=== PATIENT | female | born 1940 | race Caucasian/White ===

== ENCOUNTER 2016-10-01 06:12 | Inpatient (IN) | payer OTHER, MEDICARE ==
[~2016-10-01] VITALS: Ht 152.4 cm; Wt 63.7 kg
[2016-10-01] VITALS (7 sets, daily range): BP systolic 108–133; BP diastolic 50–71; PULSE 70–83; RESP 16–20; TEMP 96.4–98.1; O2SAT 94–97
[~2016-10-01 06:12] MED LIST: DILA100C PO; FOSA35TA2 PO; INDO25CA PO; LORT7.5T3 PO; MEDR4TAB PO; SULF1TAB47 PO
[2016-10-01] MEDS ORDERED: PHEN100C PO (06:48)
[2016-10-01] MEDS ORDERED: PHEN200C3 PO (06:48)
--- NOTE | 2016-10-01 07:20 | PD ---
HPI Chief Complaint: Abdominal Pain Time Seen by Provider: 07:11 Travel History International Travel<30 days: No Contact w/Intl Traveler<30days: No Traveled to known affect area: No History of Present Illness HPI This patient complains of abdominal pain. Duration is 13 hours. Severity is moderate. Location is right upper quadrant. She has nausea and vomited yesterday. No diarrhea or fever. No abdominal surgeries PFSH Past Medical History Arthritis: Yes Musculoskeletal: Yes (OSTEOPOROSIS) Seizures: Yes ?: Not : 1 Para: 1 Social History Alcohol Use: No Tobacco Use: No Substance Use: No Allergies-Medications (Allergen,Severity, Reaction): Coded Allergies: No Known Allergies (Verified , 10/01/16) Reported Meds & Prescriptions Reported Meds & Active Scripts Active Reported Phenytoin Extended 100 Mg Cap 100 Mg PO BID Phenytoin Extended 200 Mg Cap 200 Mg PO TID Review of Systems General / Constitutional: No: Fever Eyes: No: Visual changes HENT: No: Headaches Cardiovascular: No: Chest Pain or Discomfort Respiratory: No: Shortness of Breath Gastrointestinal: Positive: Nausea, Vomiting, Abdominal Pain Genitourinary: No: Dysuria Musculoskeletal: No: Pain Skin: No Rash Neurologic: No: Weakness Psychiatric: No: Depression Endocrine: No: Polydipsia Hematologic/Lymphatic: No: Easy Bruising Physical Exam Narrative GENERAL: Well-nourished, well-developed patient with abdominal pain. SKIN: Focused skin assessment reveals no rash and nodules. Skin is Warm and dry. HEAD: Atraumatic. Normocephalic. EYES: Pupils equal and round. No scleral icterus. No injection or drainage. ENT: No nasal bleeding or discharge. Mucous membranes pink and moist. NECK: Trachea midline. No JVD. CARDIOVASCULAR: Regular rate and rhythm. No murmur appreciated. RESPIRATORY: No accessory muscle use. Clear to auscultation. Breath sounds equal bilaterally. GASTROINTESTINAL: Abdomen soft, or upper quadrant is tender without rebound or guarding, nondistended. Hepatic and splenic margins not palpable. MUSCULOSKELETAL: No obvious deformities. No clubbing. No cyanosis. No edema. NEUROLOGICAL: Awake and alert. No obvious cranial nerve deficits. Motor grossly within normal limits. Normal speech. PSYCHIATRIC: Appropriate mood and affect; insight and judgment normal. Data Data Last Documented VS Vital Signs Date Time Temp Pulse Resp B/P Pulse Ox O2 Delivery O2 Flow Rate FiO2 10/01/16 09:05 79 16 124/64 97 Room Air 10/01/16 06:24 98.1 Orders Complete Blood Count With Diff (10/01/16 07:16) Comprehensive Metabolic Panel (10/01/16 07:16) Lipase (10/01/16 07:16) Prothrombin Time / Inr (Pt) (10/01/16 07:16) Act Partial Throm Time (Ptt) (10/01/16 07:16) Ct Abd/Pel W Iv Contrast(Rout) (10/01/16 07:16) Iv Access Insert/Monitor (10/01/16 07:16) Ecg Monitoring (10/01/16 07:16) Oximetry (10/01/16 07:16) Ondansetron Inj (Zofran Inj) (10/01/16 07:30) Sodium Chloride 0.9% Flush (Ns Flush) (10/01/16 07:30) Morphine Inj (Morphine Inj) (10/01/16 07:30) Iohexol 350 Inj (Omnipaque 350 Inj) (10/01/16 08:09) Admit Order (Ed Use Only) (10/01/16 09:07) Ampicillin-Sulbactam Inj (Unasyn Inj) (10/01/16 09:15) Labs Laboratory Tests Test 10/01/16 07:20 White Blood Count 6.3 TH/MM3 Red Blood Count 4.52 MIL/MM3 Hemoglobin 13.9 GM/DL Hematocrit 42.8 % Mean Corpuscular Volume 94.7 FL Mean Corpuscular Hemoglobin 30.7 PG Mean Corpuscular Hemoglobin 32.4 % Concent Red Cell Distribution Width 12.7 % Platelet Count 225 TH/MM3 Mean Platelet Volume 9.1 FL Neutrophils (%) (Auto) 68.7 % Lymphocytes (%) (Auto) 21.4 % Monocytes (%) (Auto) 7.8 % Eosinophils (%) (Auto) 1.6 % Basophils (%) (Auto) 0.5 % Neutrophils # (Auto) 4.3 TH/MM3 Lymphocytes # (Auto) 1.4 TH/MM3 Monocytes # (Auto) 0.5 TH/MM3 Eosinophils # (Auto) 0.1 TH/MM3 Basophils # (Auto) 0.0 TH/MM3 CBC Comment DIFF FINAL Differential Comment Prothrombin Time 11.3 SEC Prothromb Time International 1.0 RATIO Ratio Activated Partial 25.7 SEC Thromboplast Time Sodium Level 142 MEQ/L Potassium Level 4.0 MEQ/L Chloride Level 107 MEQ/L Carbon Dioxide Level 26.2 MEQ/L Anion Gap 9 MEQ/L Blood Urea Nitrogen 21 MG/DL Creatinine 0.87 MG/DL Estimat Glomerular Filtration 63 ML/MIN Rate Random Glucose 111 MG/DL Calcium Level 8.9 MG/DL Total Bilirubin 1.0 MG/DL Aspartate Amino Transf 869 U/L (AST/SGOT) Alanine Aminotransferase 419 U/L (ALT/SGPT) Alkaline Phosphatase 180 U/L Total Protein 7.7 GM/DL Albumin 3.6 GM/DL Lipase 240 U/L [facility] Medical Decision Making Medical Screen Exam Complete: Yes Emergency Medical Condition: Yes Medical Record Reviewed: Yes Differential Diagnosis Biliary colic, cholecystitis, pancreatitis Narrative Course I have reviewed the patient's electronic medical record. Patient was here last in 2008. No abdominal imaging on file IV placed I gave her IV Zofran and IV morphine for symptom relief CBC is normal Metabolic profile is normal LFTs are elevated with AST in the 800 range Lipase is normal Coagulation studies are normal CT of abdomen and pelvis shows a distended gallbladder filled with gallstones and a prominent common bile duct I gave the patient dose of Unasyn I spoke with general surgeon He is planning to operate on her tomorrow morning and recommends transfer the main I spoke with hospitalist will admit for cholecystitis Diagnosis Primary Impression: Cholecystitis, acute with cholelithiasis Qualified Code: K80.62 - Calculus of gallbladder and bile duct with acute cholecystitis without obstruction Admitting Information Admitting Physician Requests: Admit Serg Reyes MD Oct 01, 2016 07:20
[2016-10-01] MEDS ORDERED: MORPHINE SULFATE 4 MG/ML INJ IV PUSH ONE (07:30)
[2016-10-01] MEDS ORDERED: SODIUM CHLORIDE 0.9% FLUSH 10 ML FLUSH IV FLUSH PRN ×2 (07:30→09:15)
[2016-10-01] MEDS ORDERED: ONDANSETRON HCL 4 MG/2 ML VIAL IVP ONE (07:30)
[2016-10-01 07:35] LABS: AUTOMATED NEUTROPHIL # 4.3 TH/MM3 (1.8-7.7); BASOPHIL % 0.5 % (0.0-2.0); EOSINOPHIL # 0.1 TH/MM3 (0-0.4); EOSINOPHIL % 1.6 % (0.0-4.0); HEMATOCRIT 42.8 % (35.0-46.0); HEMO FLAGS DIFF FINAL; LYMPH % 21.4 % (9.0-44.0); LYMPHOCYTE # 1.4 TH/MM3 (1.0-4.8); MEAN CELL VOLUME 94.7 FL (80.0-100.0); MEAN CORPUSCULAR HEMOGLOBIN 30.7 PG (27.0-34.0); MEAN CORPUSCULAR HGB CONC 32.4 % (32.0-36.0); MONO % 7.8 % (0.0-8.0); NEUT % 68.7 % (16.0-70.0); PLATELET COUNT 225 TH/MM3 (150-450); RED BLOOD COUNT 4.52 MIL/MM3 (4.00-5.30); RED CELL DISTRIBUTION WIDTH 12.7 % (11.6-17.2); WHITE BLOOD COUNT 6.3 TH/MM3 (4.0-11.0)
[2016-10-01 07:41] LABS: CHLORIDE 107 MEQ/L (98-107); SODIUM (NA) 142 MEQ/L (136-145)
[2016-10-01 07:45] LABS: ANION GAP 9 MEQ/L (5-15); BICARBONATE 26.2 MEQ/L (21.0-32.0)
[2016-10-01 07:46] LABS: BLOOD UREA NITROGEN 21 MG/DL (7-18)
[2016-10-01 07:48] LABS: ALT (GPT) 419 U/L (10-53); AST (GOT) 869 U/L (15-37); GLOMERULAR FILTRATION RATE 63 ML/MIN (>89)
[2016-10-01 07:51] LABS: ALKALINE PHOSPHATASE 180 U/L (45-117)
[2016-10-01 07:54] LABS: APTT (PATIENT) 25.7 SEC (24.3-30.1); PROTHROMBIN TIME - PATIENT 11.3 SEC (9.8-11.6)
[2016-10-01] MEDS ORDERED: IOHEXOL 350 MG/ML 10 ML VIAL (for RAD DIAG) IV ONE (08:09)
--- NOTE | 2016-10-01 08:30 | RADHPO ---
EXAM DATE/TIME: 10/01/2016 07:54 [facility] COMPARISON: No previous studies available for comparison. INDICATIONS : Right upper quadrant pain. Nausea and vomiting. IV CONTRAST: 80 cc Omnipaque 350 (iohexol) IV ORAL CONTRAST: No oral contrast ingested. RADIATION DOSE: 9.02 CTDIvol (mGy) MEDICAL HISTORY : Seizures. SURGICAL HISTORY : None. ENCOUNTER: Initial ACUITY: 1 day PAIN SCALE: 10/10 LOCATION: Right upper quadrant TECHNIQUE: Volumetric scanning of the abdomen and pelvis was performed. Using automated exposure control and ad justment of the mA and/or kV according to patient size, radiation dose was kept as low as reasonably achievable to obtain optimal diagnostic quality images. FINDINGS: LOWER LUNGS: The visualized lower lungs are clear. GE junctional is unremarkable LIVER: Homogeneous density without lesion. There is mild intrahepatic delayed ductal dilatation with promin ent common duct and multiple gallstones.. Gallbladder is distended. Minimal inflammatory changes ar e noted.. Prominent hiatal hernia is noted. SPLEEN: Normal size without lesion. PANCREAS: Common duct is dilated into the head of the pancreas. ADRENAL GLANDS: Within normal limits. KIDNEYS: Normal in size and shape. There is no mass, stone, or hydronephrosis. CECUM : The region of the cecum and terminal ileum appear normal. RETROPERITONEAL: There is no adenopathy PELVIS: Pelvic contents are unremarkable. ABDOMINAL WALL: Intact without hernia BONE WINDOWS: Mild degenerative changes are seen in the lumbar spine. CONCLUSION: Abnormal gallbladder, distended with multiple stones and prominent common duct. Mild intrahepatic bi liary duct dilatation is present. Cholecystitis would be consideration. Common duct stones may be p resent given the size of the common duct. Prominent hiatal hernia. Sanya Vela MD FACR on October 01, 2016 at 8:24 Board Certified Radiologist. This report was verified electronically.
[2016-10-01] MEDS ORDERED: SODIUM CHLOR 0.45% 1000 ML INJ 1,000 ML IV SCH (09:13)
[2016-10-01] MEDS ORDERED: NALOXONE HCL 0.4 MG/ML AMP IV PRN (09:15)
[2016-10-01] MEDS ORDERED: ACETAMINOPHEN 325 MG TAB PO PRN ×2 (09:15)
[2016-10-01] MEDS ORDERED: AMPICILLIN-SULBACTAM INJ 3 GM in SODIUM CHLORIDE 0.9% INJ 100 ML IV ONE (09:15)
[2016-10-01] MEDS ORDERED: SENNOSIDES 8.6 MG TAB PO PRN (09:15)
[2016-10-01] MEDS ORDERED: MORPHINE SULFATE 4 MG/ML INJ IV PRN (09:15)
--- NOTE | 2016-10-01 09:45 | HHI.HP ---
HPI Service [facility] Primary Care Physician Non-Staff Admission Diagnosis acute cholecystitis Diagnoses: Chief Complaint: Abdominal pain, nausea Travel History International Travel<30 Days: No Contact w/Intl Traveler <30 Da: No Traveled to Known Affected Are: No History of Present Illness The patient is a 75-year-old female with a past medical history of seizure disorder who is presenting to the hospital with severe abdominal pain and nausea and vomiting. The patient says that yesterday she received a cortisone injection in her left foot for plantar fasciitis. After that she went to the [facility] and had a [place] salad. Once she got home she started developing severe abdominal pain. She said the pain was located all over the front of her stomach and it seemed to start spreading upwards. She said the pain was 10 out of 10 in severity. She tried self inducing vomiting several times to try to alleviate the symptoms. She said that did not help. She also tried taking Alpa -[place] and Pepto-Bismol and those also did not help. She was unable to go to sleep and decided to come to the hospital for further evaluation. Currently she says all her symptoms have resolved. She does not have much of an appetite at this time. Review of Systems Except as stated in HPI: all other systems reviewed are Neg Past Family Social History Past Medical History Seizure disorder Planta fasciitis Past Surgical History Left breast biopsy Surgery on the little toe of the right foot Allergies: Coded Allergies: No Known Allergies (Verified , 10/01/16) Active Ordered Medications Current Medications Medications (Trade) Dose Ordered Sig/Elen Route Start Time Stop Time Status Last Admin Sodium Chloride 2 ml 2 ml UNSCH PRN IV FLUSH 10/01/16 07:30 10/01/16 07:46 (Unasyn Inj/NS Inj) 100 ml @ 200 mls/hr ONCE ONCE IV 10/01/16 09:15 10/01/16 09:44 (NS Flush) 2 ml UNSCH PRN IV FLUSH 10/01/16 09:15 UNV (NS Flush) 2 ml BID IV FLUSH 10/01/16 21:00 UNV (Tylenol) 650 mg Q4H PRN PO 10/01/16 09:15 UNV (Zofran Inj) 4 mg Q6H PRN IVP 10/01/16 09:15 UNV (Colace) 100 mg Q12H PO 10/01/16 09:15 UNV (Senokot) 17.2 mg Q12H PRN PO 10/01/16 09:15 UNV (Tylenol) 650 mg Q6H PRN PO 10/01/16 09:15 UNV (Roxicodone) 10 mg Q4H PRN PO 10/01/16 09:15 UNV (Morphine Inj) 4 mg Q4H PRN IV 10/01/16 09:15 UNV (Roxicodone) 5 mg Q4H PRN PO 10/01/16 09:15 UNV Naloxone HCl 0.4 mg 0.4 mg UNSCH PRN IV 10/01/16 09:15 UNV Ampicillin Sodium/ Sulbactam Sodium 3 gm/Sodium Chloride 100 ml @ 200 mls/hr Q6H IV 10/01/16 15:00 UNV (D5W-1/2 NS 1000 ml Inj) 1,000 ml @ 75 mls/hr [id number] IV 10/01/16 09:45 UNV Family History The patient denies pertinent family history. Social History The patient rarely drinks a glass of wine. She does not smoke. Physical Exam Vital Signs Vital Signs Date Time Temp Pulse Resp B/P Pulse Ox O2 Delivery O2 Flow Rate FiO2 10/01/16 09:05 79 16 124/64 97 Room Air 10/01/16 08:25 Room Air 10/01/16 08:15 83 18 133/63 97 Room Air 10/01/16 07:50 16 10/01/16 06:24 98.1 80 20 126/71 96 Physical Exam GENERAL: This is a well-nourished, well-developed patient, in no apparent distress. SKIN: No rashes, ecchymoses or lesions. Cool and dry. HEAD: Atraumatic. Normocephalic. No temporal or scalp tenderness. EYES: Pupils equal round and reactive. Extraocular motions intact. No scleral icterus. No injection or drainage. ENT: Nose without bleeding, purulent drainage or septal hematoma. Throat without erythema, tonsillar hypertrophy or exudate. Uvula midline. Airway patent. NECK: Trachea midline. No JVD or lymphadenopathy. Supple, nontender, no meningeal signs. CARDIOVASCULAR: Regular rate and rhythm without murmurs, gallops, or rubs. RESPIRATORY: Clear to auscultation. Breath sounds equal bilaterally. No wheezes , rales, or rhonchi. GASTROINTESTINAL: Abdomen soft, non-tender, nondistended. No hepato-splenomegaly , or palpable masses. No guarding. MUSCULOSKELETAL: Extremities without clubbing, cyanosis, or edema. No joint tenderness, effusion, or edema noted. NEUROLOGICAL: Awake and alert. Cranial nerves II through XII intact. Motor and sensory grossly within normal limits. Five out of 5 muscle strength in all muscle groups. Normal speech. PSYCH: Mood and affect appropriate. Laboratory Laboratory Tests Test 10/01/16 07:20 White Blood Count 6.3 Red Blood Count 4.52 Hemoglobin 13.9 Hematocrit 42.8 Mean Corpuscular Volume 94.7 Mean Corpuscular Hemoglobin 30.7 Mean Corpuscular Hemoglobin 32.4 Concent Red Cell Distribution Width 12.7 Platelet Count 225 Mean Platelet Volume 9.1 Neutrophils (%) (Auto) 68.7 Lymphocytes (%) (Auto) 21.4 Monocytes (%) (Auto) 7.8 Eosinophils (%) (Auto) 1.6 Basophils (%) (Auto) 0.5 Neutrophils # (Auto) 4.3 Lymphocytes # (Auto) 1.4 Monocytes # (Auto) 0.5 Eosinophils # (Auto) 0.1 Basophils # (Auto) 0.0 CBC Comment DIFF FINAL Differential Comment Prothrombin Time 11.3 Prothromb Time International 1.0 Ratio Activated Partial 25.7 Thromboplast Time Sodium Level 142 Potassium Level 4.0 Chloride Level 107 Carbon Dioxide Level 26.2 Anion Gap 9 Blood Urea Nitrogen 21 Creatinine 0.87 Estimat Glomerular Filtration 63 Rate Random Glucose 111 Calcium Level 8.9 Total Bilirubin 1.0 Aspartate Amino Transf 869 (AST/SGOT) Alanine Aminotransferase 419 (ALT/SGPT) Alkaline Phosphatase 180 Total Protein 7.7 Albumin 3.6 Lipase 240 Result Diagram: 10/01/1671910/01/1620 Imaging Last Impressions Abdomen/Pelvis CT 10/01/16 0716 Signed Impressions: Service Date/Time: Saturday, October 01, 2016 07:54 - CONCLUSION: Abnormal gallbladder, distended with multiple stones and prominent common duct. Mild intrahepatic biliary duct dilatation is present. Cholecystitis would be consideration. Common duct stones may be present given the size of the common duct. Prominent hiatal hernia. Sanya Vela MD FACR Assessment and Plan Assessment and Plan Acute cholecystitis The patient developed symptoms of severe pain and nausea and vomiting. LFTs were quite elevated. CT of the abdomen showed: Abnormal gallbladder, distended with multiple stones and prominent common duct; Mild intrahepatic biliary duct dilatation is present. Gen. surgery was contacted by the emergency Department physician. - Keep the patient nothing by mouth with IV fluids. - Pain control with a bowel regimen. - Antiemetics as needed. - Continue IV Unasyn. - Surgery planning on cholecystectomy 10/02/16. Seizure disorder The patient is on phenytoin. She says she has not had a seizure in over 50 years. - Continue home medication regimen. PPx: SCDs. Code Status Full. Discussed Condition With Pt, pt's family, Dr. Reyes. Physician Certification 2 Midnight Certification Type: Admission for Inpatient Services Order for Inpatient Services The services are ordered in accordance with Medicare regulations or non- Medicare payer requirements, as applicable. In the case of services not specified as inpatient-only, they are appropriately provided as inpatient services in accordance with the 2-midnight benchmark. Estimated LOS (days): 2 days is the estimated time the patient will need to remain in the hospital, assuming treatment plan goals are met and no additional complications. Post-Hospital Plan: Home Timmy Stapleton DO Oct 01, 2016 09:45
[2016-10-01] MEDS: DOCUSATE SODIUM 100 MG CAP PO SCH ×2 (10:24→21:00)
[2016-10-01] MEDS: DEXT 5%-NACL 0.45% 1000 ML INJ 1,000 ML IV SCH ×2 (10:27→23:05)
[2016-10-01] MEDS: AMPICILLIN-SULBACTAM INJ 3 GM in SODIUM CHLORIDE 0.9% INJ 100 ML IV SCH ×2 (15:29→21:30)
[2016-10-01] MEDS: ONDANSETRON HCL 4 MG/2 ML VIAL IVP PRN (17:40)
[2016-10-01] MEDS: SODIUM CHLORIDE 0.9% FLUSH 10 ML FLUSH IV FLUSH SCH (21:00)
[2016-10-02] VITALS (7 sets, daily range): BP systolic 97–126; BP diastolic 50–76; PULSE 70–86; RESP 16–20; TEMP 96.1–98; O2SAT 94–98
[2016-10-02] MEDS: AMPICILLIN-SULBACTAM INJ 3 GM in SODIUM CHLORIDE 0.9% INJ 100 ML IV SCH ×4 (02:52→19:45)
[2016-10-02] MEDS ORDERED: SODIUM CHLORID 0.9% 500 ML IV PRN (04:45)
[2016-10-02] MEDS ORDERED: CHLORHEXIDINE GLUCONATE 2 % 1 PACK (2 CLOTHS) TOPICAL PRN (04:45)
[2016-10-02] MEDS ORDERED: LACTATED RINGER'S 1000 ML IV PRN (04:45)
[2016-10-02] MEDS ORDERED: METOPROLOL TARTRATE 25 MG TAB PO PRN (04:45)
[2016-10-02] MEDS ORDERED: INSULIN HUMAN REGULAR 1,000 UNITS/10 ML VIAL SQ PRN (04:45)
[2016-10-02] MEDS ORDERED: POVIDONE IODINE 5% (ANTISEPSIS KIT) 4 APPLICATIONS EACH NARE PRN (04:45)
[2016-10-02 07:30] LABS: AUTOMATED NEUTROPHIL # 2.2 TH/MM3 (1.8-7.7); BASOPHIL % 0.9 % (0.0-2.0); EOSINOPHIL # 0.2 TH/MM3 (0-0.4); EOSINOPHIL % 3.5 % (0.0-4.0); HEMATOCRIT 39.9 % (35.0-46.0); HEMO FLAGS DIFF FINAL; LYMPH % 32.4 % (9.0-44.0); LYMPHOCYTE # 1.4 TH/MM3 (1.0-4.8); MEAN CELL VOLUME 96.2 FL (80.0-100.0); MEAN CORPUSCULAR HEMOGLOBIN 31.6 PG (27.0-34.0); MEAN CORPUSCULAR HGB CONC 32.9 % (32.0-36.0); MONO % 11.4 % (0.0-8.0); NEUT % 51.8 % (16.0-70.0); PLATELET COUNT 180 TH/MM3 (150-450); RED BLOOD COUNT 4.15 MIL/MM3 (4.00-5.30); RED CELL DISTRIBUTION WIDTH 12.6 % (11.6-17.2); WHITE BLOOD COUNT 4.2 TH/MM3 (4.0-11.0)
[2016-10-02 07:50] LABS: ALT (GPT) 429 U/L (10-53); ANION GAP 10 MEQ/L (5-15); AST (GOT) 331 U/L (15-37); BICARBONATE 25.2 MEQ/L (21.0-32.0); BLOOD UREA NITROGEN 13 MG/DL (7-18); CHLORIDE 108 MEQ/L (98-107); GLOMERULAR FILTRATION RATE 69 ML/MIN (>89); POTASSIUM 3.7 MEQ/L (3.5-5.1); SODIUM (NA) 143 MEQ/L (136-145)
[2016-10-02 07:53] LABS: ALKALINE PHOSPHATASE 208 U/L (45-117); TOTAL BILIRUBIN ADULT 0.4 MG/DL (0.2-1.0)
[2016-10-02] MEDS: SODIUM CHLORIDE 0.9% FLUSH 10 ML FLUSH IV FLUSH SCH ×2 (08:24→19:45)
[2016-10-02] MEDS: DOCUSATE SODIUM 100 MG CAP PO SCH ×2 (08:24→19:44)
[2016-10-02] MEDS ORDERED: PHENYTOIN SODIUM 100 MG CAP PO SCH (09:00)
--- NOTE | 2016-10-02 10:56 | HHI.PR ---
Subjective Remarks Follow-up on acute cholecystitis Patient tells me currently her pain is well-controlled. She denies any nausea or vomiting. She feels hungry. She tells me that she has a history of seizure disorder however she has not been getting her medications the way she takes them at home. She tells me that she takes Dilantin 100 mg 2 tablets in the morning and 1 at night. Both and patient are concerned that she is not getting her medications appropriately and she tells me that her seizures have been well controlled for many years. Objective Vitals Vital Signs Date Time Temp Pulse Resp B/P Pulse Ox O2 Delivery O2 Flow Rate FiO2 10/02/16 07:09 96.5 72 16 120/58 95 10/02/16 04:00 98.0 70 20 97/50 97 10/02/16 00:00 97.5 73 20 114/59 94 10/01/16 20:00 97.2 77 18 118/66 94 10/01/16 16:00 97.0 72 18 121/50 94 10/01/16 13:33 96.4 70 18 108/60 96 10/01/16 13:09 79 18 110/59 97 Result Diagram: 10/02/16 0650 10/02/16 0550 Imaging Last Impressions Abdomen/Pelvis CT 10/01/16 0716 Signed Impressions: Service Date/Time: Saturday, October 01, 2016 07:54 - CONCLUSION: Abnormal gallbladder, distended with multiple stones and prominent common duct. Mild intrahepatic biliary duct dilatation is present. Cholecystitis would be consideration. Common duct stones may be present given the size of the common duct. Prominent hiatal hernia. Sanya Vela MD FACR Objective Remarks GENERAL: This is a well-nourished, well-developed patient, in no apparent distress. CARDIOVASCULAR: Regular rate and rhythm without murmurs RESPIRATORY: Clear to auscultation. Breath sounds equal bilaterally. No wheezes GASTROINTESTINAL: Abdomen soft, non-tender, nondistended. No guarding or rebound. MUSCULOSKELETAL: Extremities without edema. No joint tenderness, effusion, or edema noted. NEUROLOGICAL: Awake and alert. Cranial nerves II through XII intact. Motor and sensory grossly within normal limits. Five out of 5 muscle strength in all muscle groups. Normal speech. PSYCH: Mood and affect appropriate. A/P Assessment and Plan Acute cholecystitis The patient developed symptoms of severe pain and nausea and vomiting. LFTs were quite elevated AST/ALT 869/419 now trending down AST/ALT 331/429 today. Continue to monitor closely. CT of the abdomen showed: Abnormal gallbladder, distended with multiple stones and prominent common duct; Mild intrahepatic biliary duct dilatation is present. Gen. surgery was contacted by the emergency Department physician. From the orders I see that Dr. Omalley has also consulted gastroenterology. - For now, will continue to Keep the patient NPO with IV fluids. - Continue Pain control with a bowel regimen. - Continue Antiemetics as needed. - Continue IV Unasyn. - Per ER note, the patient is supposed to undergo surgery today for cholecystectomy. We will await final recommendations from general surgery. Seizure disorder The patient is on phenytoin. She says she has not had a seizure in over 50 years. -I have requested that I and update the med rec and we will resume patient's home med Dilantin at 200 mg in the morning and one here 100 mg in the evening Discharge Planning Awaiting recommendations from general surgery and gastroenterology. Jaqueline Heck MD Oct 02, 2016 10:55
[2016-10-02] MEDS ORDERED: PHEN200C3 PO (11:02)
[2016-10-02] MEDS ORDERED: PHEN100C PO (11:03)
[2016-10-02] MEDS: DEXT 5%-NACL 0.45% 1000 ML INJ 1,000 ML IV SCH (12:33)
--- NOTE | 2016-10-02 13:32 | PD.CONS ---
HPI History of Present Illness This is a 75 year old female who presents to the ER with severe RUQ abdominal pain, with nausea and vomiting. Reports pain started all of a sudden and rated the pain as 10/10. She tried taking [place] and Pepto-Bismol with no relief. Today she states that her symptoms have resolved. Denies abdominal pain. No N/V today. General surgery was consulted by the ER MD. Abdomen/Pelvis CT 10/01/16 with abnormal gallbladder, distended with multiple stones and prominent common duct. Mild intrahepatic biliary duct dilatation is present. Cholecystitis would be consideration. Common duct stones may be present given the size of the common duct. Prominent hiatal hernia. (Lana Campos) PFSH Past Medical History -Seizure disorder -Plantar fasciitis Past Surgical History -Left breast biopsy -Surgery on R foot, 5th digit (Lana Campos) Coded Allergies: No Known Allergies (Verified , 10/01/16) Medications Current Medications Medications (Trade) Dose Ordered Sig/Elen Route PRN Reason Start Time Stop Time Status Last Admin Dose Admin Sodium Chloride (NS Flush) 2 ml UNSCH PRN IV FLUSH FLUSH AFTER USING IV ACCESS 10/01/16 09:15 Sodium Chloride (NS Flush) 2 ml BID IV FLUSH 10/01/16 21:00 10/02/16 08:24 Acetaminophen (Tylenol) 650 mg Q4H PRN PO TEMP > 100.4 10/01/16 09:15 Ondansetron HCl (Zofran Inj) 4 mg Q6H PRN IVP NAUSEA OR VOMITING 10/01/16 09:15 10/01/16 17:40 Docusate Sodium (Colace) 100 mg Q12HR PO 10/01/16 09:15 10/01/16 10:24 Sennosides (Senokot) 17.2 mg Q12H PRN PO CONSTIPATION 10/01/16 09:15 Acetaminophen (Tylenol) 650 mg Q6H PRN PO PAIN SCALE 1 TO 2 10/01/16 09:15 Oxycodone HCl (Roxicodone) 10 mg Q4H PRN PO PAIN SCALE 6 TO 10 10/01/16 09:15 Morphine Sulfate (Morphine Inj) 4 mg Q4H PRN IV BREAKTHROUGH PAIN 10/01/16 09:15 10/01/16 17:08 Oxycodone HCl (Roxicodone) 5 mg Q4H PRN PO PAIN SCALE 3 TO 5 10/01/16 09:15 Naloxone HCl 0.4 mg 0.4 mg UNSCH PRN IV SEE LABEL COMMENTS 10/01/16 09:15 Ampicillin Sodium/ Sulbactam Sodium 3 gm/Sodium Chloride 100 ml @ 200 mls/hr Q6H IV 10/01/16 15:00 10/02/16 08:23 Dextrose/Sodium Chloride 1,000 ml @ 75 mls/hr [id number] IV 10/01/16 09:45 10/02/16 12:33 Lactated Ringer's 1,000 ml @ 30 mls/hr Q24H PRN IV SEE LABEL COMMENTS 10/02/16 04:45 10/05/16 04:44 Sodium Chloride (NS 500 ml Inj) 500 ml @ 30 mls/hr [id number] PRN IV SEE LABEL COMMENTS 10/02/16 04:45 10/05/16 04:44 Phenytoin (Dilantin) 200 mg DAILY PO 10/03/16 09:00 Phenytoin (Dilantin) 100 mg HS PO 10/02/16 21:00 Family History Denies any pertinent family medical history Social History ETOH: Rare alcohol use Tobacco: Denies Illicit Drugs: Denies (Lana Campos) Review of Systems Constitutional: DENIES: Diaphoretic episodes, Fatigue, Fever, Weight gain, Weight loss, Chills, Dizziness, Change in appetite, Night Sweats Endocrine: DENIES: Polydipsia, Polyuria Eyes: DENIES: Blurred vision, Photosensitivity, Double Vision Ears, nose, mouth, throat: DENIES: Hearing loss, Vertigo, Oral lesions, Throat pain, Hoarseness Respiratory: DENIES: Cough, Wheezing, Hemoptysis, Sputum production, Shortness of breath Cardiovascular: DENIES: Chest pain, Palpitations, Syncope, Lower Extremity Edema, Orthopnea, Claudication Gastrointestinal: DENIES: Abdominal pain, Black stools, Bloody stools, Constipation, Diarrhea, Nausea, Vomiting, Difficulty Swallowing, Anorexia, Odynophagia, Swelling of Abdomen, Heartburn, Hematemesis Genitourinary: DENIES: Urinary frequency, Urinary incontinence, Urgency, Hematuria, Dysuria, Nocturia Musculoskeletal: DENIES: Joint pain, Muscle aches, Stiffness, Joint Swelling, Back pain, Neck pain Integumentary: DENIES: Abnormal pigmentation, Nail changes, Pruritus, Rash, Jaundice Hematologic/lymphatic: DENIES: Bruising, Lymphadenopathy Immunologic/allergic: DENIES: Eczema, Urticaria Neurologic: DENIES: Abnormal gait, Headache, Localized weakness, Paresthesias Psychiatric: DENIES: Anxiety, Confusion, Mood changes, Depression, Agitation, Suicidal Ideation (Lana Campos) GI Exam Vitals I&O Vital Signs Date Time Temp Pulse Resp B/P Pulse Ox O2 Delivery O2 Flow Rate FiO2 10/02/16 11:21 97.0 77 16 110/62 95 10/02/16 07:09 96.5 72 16 120/58 95 10/02/16 04:00 98.0 70 20 97/50 97 10/02/16 00:00 97.5 73 20 114/59 94 10/01/16 20:00 97.2 77 18 118/66 94 10/01/16 16:00 97.0 72 18 121/50 94 10/01/16 13:33 96.4 70 18 108/60 96 10/01/16 13:09 79 18 110/59 97 Imaging Last Impressions Abdomen/Pelvis CT 10/01/16 0716 Signed Impressions: Service Date/Time: Saturday, October 01, 2016 07:54 - CONCLUSION: Abnormal gallbladder, distended with multiple stones and prominent common duct. Mild intrahepatic biliary duct dilatation is present. Cholecystitis would be consideration. Common duct stones may be present given the size of the common duct. Prominent hiatal hernia. Sanya Vela MD FACR Laboratory Test 10/02/16 10/02/16 05:50 06:50 Sodium Level 143 MEQ/L Potassium Level 3.7 MEQ/L Chloride Level 108 MEQ/L Carbon Dioxide Level 25.2 MEQ/L Anion Gap 10 MEQ/L Blood Urea Nitrogen 13 MG/DL Creatinine 0.81 MG/DL Estimat Glomerular Filtration 69 ML/MIN Rate Random Glucose 90 MG/DL Calcium Level 8.4 MG/DL Total Bilirubin 0.4 MG/DL Aspartate Amino Transf 331 U/L (AST/SGOT) Alanine Aminotransferase 429 U/L (ALT/SGPT) Alkaline Phosphatase 208 U/L Total Protein 7.1 GM/DL Albumin 3.3 GM/DL White Blood Count 4.2 TH/MM3 Red Blood Count 4.15 MIL/MM3 Hemoglobin 13.1 GM/DL Hematocrit 39.9 % Mean Corpuscular Volume 96.2 FL Mean Corpuscular Hemoglobin 31.6 PG Mean Corpuscular Hemoglobin 32.9 % Concent Red Cell Distribution Width 12.6 % Platelet Count 180 TH/MM3 Mean Platelet Volume 9.5 FL Neutrophils (%) (Auto) 51.8 % Lymphocytes (%) (Auto) 32.4 % Monocytes (%) (Auto) 11.4 % Eosinophils (%) (Auto) 3.5 % Basophils (%) (Auto) 0.9 % Neutrophils # (Auto) 2.2 TH/MM3 Lymphocytes # (Auto) 1.4 TH/MM3 Monocytes # (Auto) 0.5 TH/MM3 Eosinophils # (Auto) 0.2 TH/MM3 Basophils # (Auto) 0.0 TH/MM3 CBC Comment DIFF FINAL Differential Comment Physical Examination HEENT: PERRLA NECK: Neck is supple, no JVD, no lymphadenopathy. CHEST: CTA CARDIAC: RRR. ABDOMEN: Soft, nondistended, nontender; no hepatosplenomegaly; bowel sounds are present in x 4 quadrants EXTREMITIES: No clubbing, cyanosis, or edema. SKIN: Normal; no rash; no jaundice. MANAGER STRATEGIC PARTNERSHIPS: No focal deficits; A & O x3. (Lana Campos) Assessment and Plan Plan ASSESSMENT: Acute cholecystitis: Patient went to ER for severe abdominal pain, with N/V. Symptoms have resolved. Patient denies any abdominal pain today. No N/V. Abdomen/Pelvis CT 10/01/16--Abnormal gallbladder, distended with multiple stones and prominent common duct. Mild intrahepatic biliary duct dilatation is present. Cholecystitis would be consideration. Common duct stones may be present given the size of the common duct. Prominent hiatal hernia. General surgery was consulted with cholecystectomy scheduled for today. I spoke to Dr. Omalley today and he states that he would like GI recommendation prior to having patient doing cholecystectomy, as the patient is no longer having symptoms. Patient may have passed stones? LFTs are elevated, but have improved today. Initially, AST 869, ALT 419 Today, AST 331, ALT 429. Seizure disorder: Per primary. Stable. Patient is on Phenytoin. PLAN: -Will order ERCP -NPO -IV Fluids -General surgery following with possible cholecystectomy in the future if needed -Further recommendations to follow based on results of above Patient seen and examined by Dr. Herrera and myself and this note is written on his behalf. (Lana Campos) Physician Comments Seen and examined Patient presenting with abdominal pain and was noted to have dilated bile duct and cholelithiasis distended gallbladder and elevated liver function tests We will need to rule out choledocholithiasis An MRCP will be ordered if positive for stones then we will pursue an ERCP Further recommendations shall depend on the above and her hospital course ( Brandon Herrera MD) Lana Campos Oct 02, 2016 13:32 Brandon Herrera MD Oct 02, 2016 14:25
--- NOTE | 2016-10-02 18:08 | RADRPT ---
EXAM DATE/TIME: 10/02/2016 17:32 [facility] COMPARISON: CT ABDOMEN & PELVIS W CONTRAST, October 01, 2016, 7:54. INDICATIONS : Choledocholithiasis. MEDICAL HISTORY : Seizures. Osteoporosis. SURGICAL HISTORY : None. ENCOUNTER: Initial ACUITY: 1 day PAIN SCORE: 5/10 LOCATION: Abdomen TECHNIQUE: Multiplanar, multisequence magnetic resonance imaging of the abdomen was performed. High-resolution 3D dataset was utilized to reconstruct maximum-intensity projection (MIP) images. FINDINGS: The gallbladder demonstrates multiple stones without gallbladder wall thickening, or pericholecy stic fluid. The common bile duct measures 5-6 mm with numerous common bile duct stones. Large hiatal hernia is seen. CONCLUSION: Cholelithiasis and choledocholithiasis. Kyle Wheeler MD on October 02, 2016 at 18:03 Board Certified Radiologist. This report was verified electronically.
--- NOTE | 2016-10-02 19:04 | EKG ---
Date Performed: 10/02/2016 Time Performed: 04:50:32 PTAGE: 75 years EKG: Sinus rhythm Anterior T wave changes are nonspecific Borderline ECG PREVIOUS TRACING : 08/14/1999 11.45 Compared to prior tracing no significant change DOCTOR: Walter Santos Interpretating Date/Time 10/02/2016 19:03:20
[2016-10-02] MEDS: PHENYTOIN SODIUM 100 MG CAP PO SCH (19:44)
--- NOTE | 2016-10-02 22:41 | MB ---
cc: COLIN DHALIWAL MD DATE OF CONSULTATION 10/02/[address] Reyes REASON FOR CONSULTATION Cholecystitis HISTORY OF PRESENT ILLNESS The patient is a 75-year-old female who has presented to [facility] with right upper quadrant pain. The patient was under went evaluation in the emergency department and was found to have multiple gallstones as well as a dilated common bile duct with elevated transaminases, alkaline phosphatase. The patient had resolution of her pain currently. However, the patient describes the pain was in the right upper quadrant without radiation and a constant type pressure related to food intake. She had a several episodes, however, this was the worst episode. The patient denies any jaundice, fever, nausea, diarrhea or constipation or any other symptoms. General surgery was asked to evaluate the patient for possible cholecystitis. REVIEW OF SYSTEMS 12-point review of symptoms conducted with the patient, is negative except for the pertinent positives mentioned above in history of present illness. PAST MEDICAL HISTORY 1. Arthritis 2. Osteoporosis 3. Seizure disorder. PAST SURGICAL HISTORY None ALLERGIES NO KNOWN DRUG ALLERGIES. MEDICATIONS Phenytoin SOCIAL HISTORY The patient denies alcohol, tobacco or drug use. FAMILY HISTORY Noncontributory. PHYSICAL EXAMINATION VITAL SIGNS: Temperature 98.1 degrees, pulse rate 79, blood pressure 124/64, GENERAL: The patient is a thin female in no acute distress. HEENT: Head normocephalic atraumatic. Pupils are round, react and accommodate to light. Sclerae are anicteric. Mucous sounds are moist. NECK: Supple. No JVD. LUNGS: Clear to auscultation bilaterally. Non labored breathing pattern. HEART: Regular rate and rhythm. PMI is nondisplaced. ABDOMEN: Soft, nondistended. No organomegaly. No ascites. No right upper quadrant pain, no surgical scars. Normal bowel sounds. EXTREMITIES: No clubbing, cyanosis or edema. BACK: No CVA tenderness NEUROLOGIC: Patient is awake, alert and oriented x4 moving all extremities. Nonfocal. Cranial nerves II-XII are grossly intact. ASSESSMENT/PLAN The patient is a female with likely mild acute cholecystitis versus biliary colic. Favor biliary colic which is now resolved. The patient unfortunately has had some elevated transaminases and enlarged common bile duct concerning for choledocholithiasis or possibly a passed gallstone and the bile duct stone. I discussed treatment with the patient including inpatient as well as outpatient elective surgery. I would recommend evaluation by gastroenterology for possible choledocholithiasis. If the patient is found to be clear from a GI standpoint with no choledocholithiasis, we will proceed with cholecystectomy either inpatient or outpatient based on the patient's preference. We will follow this patient. Thank you very much for this consultation. MD IVON Bourgeois/ /10:10 PM /10:23 PM
[2016-10-03] MEDS: DEXT 5%-NACL 0.45% 1000 ML INJ 1,000 ML IV SCH ×3 (01:43→15:26)
[2016-10-03] MEDS: AMPICILLIN-SULBACTAM INJ 3 GM in SODIUM CHLORIDE 0.9% INJ 100 ML IV SCH ×4 (02:58→21:05)
[2016-10-03 03:41] VITALS: BP 133/60; PULSE 76; RESP 16; TEMP 97; O2SAT 99
[2016-10-03 05:47] LABS: HEMATOCRIT 38.1 % (35.0-46.0); MEAN CELL VOLUME 95.2 FL (80.0-100.0); MEAN CORPUSCULAR HEMOGLOBIN 31.7 PG (27.0-34.0); MEAN CORPUSCULAR HGB CONC 33.3 % (32.0-36.0); PLATELET COUNT 170 TH/MM3 (150-450); RED CELL DISTRIBUTION WIDTH 12.8 % (11.6-17.2); REVIEW FLAG FINAL; WHITE BLOOD COUNT 4.7 TH/MM3 (4.0-11.0)
[2016-10-03 06:20] LABS: ALKALINE PHOSPHATASE 179 U/L (45-117); ALT (GPT) 265 U/L (10-53); ANION GAP 8 MEQ/L (5-15); AST (GOT) 100 U/L (15-37); BICARBONATE 25.4 MEQ/L (21.0-32.0); BLOOD UREA NITROGEN 9 MG/DL (7-18); CHLORIDE 108 MEQ/L (98-107); GLOMERULAR FILTRATION RATE 71 ML/MIN (>89); POTASSIUM 3.5 MEQ/L (3.5-5.1); SODIUM (NA) 141 MEQ/L (136-145); TOTAL BILIRUBIN ADULT 0.3 MG/DL (0.2-1.0)
[2016-10-03 07:11] VITALS: BP 125/59; PULSE 78; RESP 16; TEMP 96.8; O2SAT 96
[2016-10-03] MEDS: SODIUM CHLORIDE 0.9% FLUSH 10 ML FLUSH IV FLUSH SCH ×2 (08:44→21:05)
[2016-10-03] MEDS: DOCUSATE SODIUM 100 MG CAP PO SCH ×2 (08:44→21:05)
[2016-10-03] MEDS: PHENYTOIN SODIUM 100 MG CAP PO SCH ×2 (08:44→21:05)
--- NOTE | 2016-10-03 11:03 | HHI.PR ---
Subjective Subjective Notes no pain Objective Vitals/I&O Vital Signs Date Time Temp Pulse Resp B/P Pulse Ox O2 Delivery O2 Flow Rate FiO2 10/03/16 07:11 96.8 78 16 125/59 96 10/01/16 09:05 Room Air Labs Laboratory Tests Test 10/03/16 05:13 White Blood Count 4.7 Red Blood Count 4.00 Hemoglobin 12.7 Hematocrit 38.1 Mean Corpuscular Volume 95.2 Mean Corpuscular Hemoglobin 31.7 Mean Corpuscular Hemoglobin 33.3 Concent Red Cell Distribution Width 12.8 Platelet Count 170 Mean Platelet Volume 9.4 Sodium Level 141 Potassium Level 3.5 Chloride Level 108 Carbon Dioxide Level 25.4 Anion Gap 8 Blood Urea Nitrogen 9 Creatinine 0.79 Estimat Glomerular Filtration 71 Rate Random Glucose 110 Calcium Level 8.2 Total Bilirubin 0.3 Aspartate Amino Transf 100 (AST/SGOT) Alanine Aminotransferase 265 (ALT/SGPT) Alkaline Phosphatase 179 Total Protein 6.7 Albumin 3.1 Cardiovascular: Regular Abdomen: Non-distended, Non-tender A/P Assessment and Plan 75yo with CBD stones, increase LFT, stable. will need lap rene MRI with CBD stones, may need ERCP, await GI rec Lj Omalley MD Oct 03, 2016 11:03
[2016-10-03 11:18] VITALS: BP 128/67; PULSE 76; RESP 16; TEMP 96.9; O2SAT 96
--- NOTE | 2016-10-03 13:28 | HHI.PR ---
Subjective Remarks Pt feeling much better. No abdominal pain at this time. Denies any CP/SOB/N/V Tells me that she will be going for a GI procedure tomorrow to remove stone from her ducts and then will f/u as an outpatient w Sx to have her gallbladder removed Objective Vitals Vital Signs Date Time Temp Pulse Resp B/P Pulse Ox O2 Delivery O2 Flow Rate FiO2 10/03/16 11:18 96.9 76 16 128/67 96 10/03/16 07:11 96.8 78 16 125/59 96 10/03/16 03:41 97.0 76 16 133/60 99 10/02/16 23:45 97.2 75 16 105/57 98 10/02/16 19:31 96.6 86 17 126/76 97 10/02/16 15:30 96.1 81 16 123/61 95 I/O 10/02/16 10/02/16 10/02/16 10/03/16 10/03/16 10/03/16 07:00 15:00 23:00 07:00 15:00 23:00 Intake Total 459 ml 600 ml 0 ml Balance 459 ml 600 ml 0 ml Intake Oral 0 ml 600 ml 0 ml IV Total 459 ml # Voids 3 3 2 3 # Bowel Movements 0 3 Result Diagram: 10/03/16 0513 10/03/16 0513 Imaging Last Impressions Cholangiopancreatography MRI 10/02/16 0000 Signed Impressions: Service Date/Time: Sunday, October 02, 2016 17:32 - CONCLUSION: Cholelithiasis and choledocholithiasis. Kyle Wheeler MD Abdomen/Pelvis CT 10/01/16 0716 Signed Impressions: Service Date/Time: Saturday, October 01, 2016 07:54 - CONCLUSION: Abnormal gallbladder, distended with multiple stones and prominent common duct. Mild intrahepatic biliary duct dilatation is present. Cholecystitis would be consideration. Common duct stones may be present given the size of the common duct. Prominent hiatal hernia. Sanya Vela MD FACR Objective Remarks GENERAL: This is a well-nourished, well-developed patient, in no apparent distress. CARDIOVASCULAR: Regular rate and rhythm without murmurs RESPIRATORY: Clear to auscultation. Breath sounds equal bilaterally. No wheezes GASTROINTESTINAL: Abdomen soft, non-tender, nondistended. No guarding or rebound. MUSCULOSKELETAL: Extremities without edema. NEUROLOGICAL: Awake and alert. Cranial nerves II through XII intact. Normal speech. PSYCH: Mood and affect appropriate. A/P Assessment and Plan Acute cholecystitis The patient developed symptoms of severe pain and nausea and vomiting. LFTs were quite elevated AST/ALT 869/419 now trending down AST/ALT 100/265 today. Continue to monitor closely. CT of the abdomen showed: Abnormal gallbladder, distended with multiple stones and prominent common duct; Mild intrahepatic biliary duct dilatation is present. Gen. surgery and GI following. - on clears - Continue Pain control with a bowel regimen. - Continue Antiemetics as needed. - Continue IV Unasyn. - Per pt she will be going for what sounds like an ERCP in the morning and she will f/u as an outpatient w [facility] for cholecystectomy. Discussed with patient's RN , she confirms that she spoke with GI and patient is scheduled for ERCP tomorrow Seizure disorder The patient is on phenytoin. She says she has not had a seizure in over 50 years. -on home med Dilantin at 200 mg in the morning and one here 100 mg in the evening Discharge Planning ERCP in the morning. Jaqueline Heck MD Oct 03, 2016 13:28
[2016-10-03 16:00] VITALS: BP 124/64; PULSE 81; RESP 16; TEMP 97.5; O2SAT 95
[2016-10-03 20:30] VITALS: BP 112/77; PULSE 88; RESP 17; TEMP 97.9; O2SAT 95
--- NOTE | 2016-10-03 23:39 | HHI.GIFU ---
Subjective Remarks Patient doing well denies any pain Objective Vitals I&O Vital Signs Date Time Temp Pulse Resp B/P Pulse Ox O2 Delivery O2 Flow Rate FiO2 10/03/16 20:30 97.9 88 17 112/77 95 10/03/16 19:03 Room Air 10/03/16 16:00 97.5 81 16 124/64 95 10/03/16 11:18 96.9 76 16 128/67 96 10/03/16 07:11 96.8 78 16 125/59 96 10/03/16 03:41 97.0 76 16 133/60 99 10/02/16 23:45 97.2 75 16 105/57 98 I/O 10/02/16 10/02/16 10/02/16 10/03/16 10/03/16 10/03/16 07:00 15:00 23:00 07:00 15:00 23:00 Intake Total 459 ml 600 ml 0 ml 720 ml 480 ml Balance 459 ml 600 ml 0 ml 720 ml 480 ml Intake Oral 0 ml 600 ml 0 ml 720 ml 480 ml IV Total 459 ml # Voids 3 3 2 3 4 3 # Bowel Movements 0 3 2 2 Laboratory Laboratory Tests Test 10/03/16 05:13 White Blood Count 4.7 Red Blood Count 4.00 Hemoglobin 12.7 Hematocrit 38.1 Mean Corpuscular Volume 95.2 Mean Corpuscular Hemoglobin 31.7 Mean Corpuscular Hemoglobin 33.3 Concent Red Cell Distribution Width 12.8 Platelet Count 170 Mean Platelet Volume 9.4 Sodium Level 141 Potassium Level 3.5 Chloride Level 108 Carbon Dioxide Level 25.4 Anion Gap 8 Blood Urea Nitrogen 9 Creatinine 0.79 Estimat Glomerular Filtration 71 Rate Random Glucose 110 Calcium Level 8.2 Total Bilirubin 0.3 Aspartate Amino Transf 100 (AST/SGOT) Alanine Aminotransferase 265 (ALT/SGPT) Alkaline Phosphatase 179 Total Protein 6.7 Albumin 3.1 Imaging Last 48 hours Impressions Cholangiopancreatography MRI 10/02/16 0000 Signed Impressions: Service Date/Time: Sunday, October 02, 2016 17:32 - CONCLUSION: Cholelithiasis and choledocholithiasis. Kyle Wheeler MD Physical Exam HEENT: normocephalic;throat is clear. NECK: Neck is supple, CHEST: Chest is clear to auscultation and percussion. CARDIAC: Regular rate and rhythm with no murmur gallop or rubs. ABDOMEN: Soft, nondistended, nontender; no hepatosplenomegaly; bowel sounds are present in all four quadrants. EXTREMITIES: No clubbing, cyanosis, or edema. SKIN: Normal; no rash; no jaundice. RETAIL SERVICE SPECIALIST: No focal deficits; alert and oriented times three. Assessment and Plan Plan ASSESSMENT: Acute cholecystitis: Patient went to ER for severe abdominal pain, with N/V. Symptoms have resolved. Patient denies any abdominal pain today. No N/V. Abdomen/Pelvis CT 10/01/16--Abnormal gallbladder, distended with multiple stones and prominent common duct. Mild intrahepatic biliary duct dilatation is present. Cholecystitis would be consideration. Common duct stones may be present given the size of the common duct. Prominent hiatal hernia. General surgery was consulted with cholecystectomy scheduled for today. I spoke to Dr. Omalley today and he states that he would like GI recommendation prior to having patient doing cholecystectomy, as the patient is no longer having symptoms. Patient may have passed stones? LFTs are elevated, but have improved today. Initially, AST 869, ALT 419 Today, AST 331, ALT 429. Seizure disorder: Per primary. Stable. Patient is on Phenytoin. PLAN: -Will order ERCP -NPO -IV Fluids -General surgery following with possible cholecystectomy in the future if needed -Further recommendations to follow based on results of above Brandon Herrera MD Oct 03, 2016 23:39
[2016-10-04 00:55] VITALS: BP 97/47; PULSE 74; RESP 17; TEMP 97.1; O2SAT 97
[2016-10-04] MEDS: AMPICILLIN-SULBACTAM INJ 3 GM in SODIUM CHLORIDE 0.9% INJ 100 ML IV SCH ×4 (02:52→20:16)
[2016-10-04 04:01] VITALS: BP 115/54; PULSE 74; RESP 16; TEMP 96.7; O2SAT 96
[2016-10-04 07:06] VITALS: BP 113/62; PULSE 69; RESP 17; TEMP 95.5; O2SAT 96
[2016-10-04] MEDS: SODIUM CHLORIDE 0.9% FLUSH 10 ML FLUSH IV FLUSH SCH ×2 (07:50→20:13)
[2016-10-04] MEDS: DOCUSATE SODIUM 100 MG CAP PO SCH ×2 (07:50→20:16)
[2016-10-04] MEDS: PHENYTOIN SODIUM 100 MG CAP PO SCH ×2 (07:51→20:13)
[2016-10-04] MEDS ORDERED: diphenhydrAMINE HCL 50 MG/ML VIAL ONE (12:48)
[2016-10-04] MEDS ORDERED: PROPOFOL 200 MG/20 ML AMP IV ONE (13:12)
[2016-10-04] MEDS ORDERED: IOHEXOL 350 MG/ML 100 ML BTL (for RAD DIAG) OTHER ONE (13:13)
[2016-10-04] MEDS ORDERED: MIDAZOLAM HCL 2 MG/2 ML VIAL ONE (13:15)
--- NOTE | 2016-10-04 13:49 | GIPROC ---
[facility] [address] [facility]. [facility], [address] ERCP PROCEDURE REPORT EXAM DATE: 10/04/2016 PATIENT NAME: Wilda Andersen MR #: [id number] BIRTHDATE: 1940 ATTENDING: Evens Villanueva MD ORDER #: [id number] SWITCH INSPECTOR: Ethan Bardales McLane, Michelle, and Cheri Diggs STATUS: inpatient INDICATIONS: The patient is a 75 yr old female here for an ERCP due to abdominal pain of suspected biliary origin, abnormal MRCP, and established bile duct stone(s) PROCEDURE PERFORMED: ERCP with sphincterotomy/papillotomy ERCP with removal of calculus/calculi ERCP with stent placement MEDICATIONS: Per Anesthesia and None. CONSENT: The patient understands the risks and benefits of the procedure and understands that these risks include, but are not limited to: sedation, allergic reaction, infection, perforation and/or bleeding. Alternative means of evaluation and treatment include, among others: physical exam, x-rays, and/or surgical intervention. The patient elects to proceed with this endoscopic procedure. medical equipment was checked for proper function. Hand hygiene and appropriate measures for infection prevention was taken. After the risks, benefits and alternatives of the procedure were thoroughly explained, Informed was verified, confirmed and timeout was successfully executed by the treatment team. With the patient in left semi-prone position, medications were administered intravenously.The Pentax [id number] was passed from the mouth into the esophagus and further advanced from the esophagus into the stomach. From stomach scope was directed to the second portion of the duodenum. Major papilla was aligned with the duodenoscope. The scope position was confirmed fluoroscopically. Rest of the findings/therapeutics are given below. The scope was then completely withdrawn from the patient and the procedure completed. The pulse, BP, and O2 saturation were monitored and documented by the physician and the nursing staff throughout the entire procedure. The patient was cared for as planned according to standard protocol. The patient was then discharged to recovery in stable condition and with appropriate post procedure care. Two stones were seen in the common bile duct. 6mm sphincterotomy, balloon sweep x 3 with 8.5 mm balloon. 8.5 x 9cm stent placed. ADVERSE EVENT: There were no complications. IMPRESSIONS: 6mm sphincterotomy, balloon sweep x 3 with 8.5 mm balloon. 8.5 x 9cm stent placed RECOMMENDATIONS: Liver enzymes REPEAT EXAM: Return 3 months ERCP Evens Villanueva MD eSigned: Evens Villanueva MD 10/04/2016 1:49 PM cc:
[2016-10-04 14:56] VITALS: BP 148/82; PULSE 67; RESP 16; TEMP 95.9; O2SAT 97
--- NOTE | 2016-10-04 16:16 | HHI.PR ---
Subjective Subjective Notes Resting in bed Just back from ERCP Pain controlled Objective Vitals/I&O Vital Signs Date Time Temp Pulse Resp B/P Pulse Ox O2 Delivery O2 Flow Rate FiO2 10/04/16 14:30 68 20 160/69 96 Room Air 10/04/16 14:15 2 10/04/16 13:50 98.0 Cardiovascular: Regular Lungs: Clear Abdomen: Other (no RUQ pain; minimal lower abdominal pain only with movement ) Extremities: No edema A/P Assessment and Plan 75 year old female with CBD stone -S/p ERCP -Clear liquids -Labs in AM -If labs stable and able to tolerate a regular diet patient would prefer to have lap rene done as outpatient in a few weeks -Discussed with the plan Attending Statement The exam, history, and the medical decision-making described in the above note were completed with the assistance of the mid-level provider. I reviewed and agree with the findings presented. I attest that I had a [id number] encounter with the patient on the same day, and personally performed and documented my assessment and findings in the medical record. Abdominal exam stable, non-tender, tolerating PO, patient declining inpatient lop rene Debbie Mueller October 04, 2016 16:16 Lj Omalley MD November 02, 2016 11:23
--- NOTE | 2016-10-04 16:17 | RADRPT ---
EXAM DATE/TIME: 10/04/2016 13:13 [place] COMPARISON: MRCP W/O CONTRAST, October 02, 2016, 17:32. INDICATIONS : Obstruction. FLUORO TIME: 2.15 minutes IMAGE COUNT: 3 CONTRAST: Instilled by Ordering Physician MEDICAL HISTORY : Choledocholithiasis SURGICAL HISTORY : None. ENCOUNTER: Initial ACUITY: 3 days PAIN SCORE: Non-responsive. LOCATION: Right upper quadrant FINDINGS: An ERCP was performed by the ordering physician. The images demonstrate a scope overlying the common bile duct. Contrast is opacifying the intrahepati c and extra hepatic biliary tree. A questionable filling defect on one of the images. Miguel style m aneuver is noted on one of the images. Final image shows a Silastic stent in good position. CONCLUSION: ERCP as above. Tam Torres Jr., MD on October 04, 2016 at 16:12 Board Certified Radiologist. This report was verified electronically.
--- NOTE | 2016-10-04 16:59 | HHI.PR ---
Subjective Remarks s/p ERCP. feels tired. has some pain but it is tolerable, 3/10. no nausea or vomiting. Objective Vitals Vital Signs Date Time Temp Pulse Resp B/P Pulse Ox O2 Delivery O2 Flow Rate FiO2 10/04/16 14:30 68 20 160/69 96 Room Air 10/04/16 14:15 80 15 148/74 100 Nasal Cannula 2 10/04/16 14:00 73 15 143/67 100 Nasal Cannula 2 10/04/16 13:50 98.0 78 22 141/64 99 Nasal Cannula 2 10/04/16 07:06 95.5 69 17 113/62 96 10/04/16 04:01 96.7 74 16 115/54 96 10/04/16 00:55 97.1 74 17 97/47 97 10/03/16 20:30 97.9 88 17 112/77 95 10/03/16 19:03 Room Air I/O 10/03/16 10/03/16 10/03/16 10/04/16 10/04/16 10/04/16 07:00 15:00 23:00 07:00 15:00 23:00 Intake Total 0 ml 720 ml 480 ml 0 ml 600 ml Balance 0 ml 720 ml 480 ml 0 ml 600 ml Intake Oral 0 ml 720 ml 480 ml 0 ml Other 600 ml # Voids 3 4 3 1 # Bowel Movements 2 2 0 Result Diagram: 10/03/16 0513 10/03/16 0513 Imaging Last Impressions GI Procedure 10/04/16 0000 Signed Impressions: Service Date/Time: Tuesday, October 04, 2016 13:13 - CONCLUSION: ERCP as above. Tam Torres Jr., MD Cholangiopancreatography MRI 10/02/16 0000 Signed Impressions: Service Date/Time: Sunday, October 02, 2016 17:32 - CONCLUSION: Cholelithiasis and choledocholithiasis. Kyle Wheeler MD Abdomen/Pelvis CT 10/01/16 0716 Signed Impressions: Service Date/Time: Saturday, October 01, 2016 07:54 - CONCLUSION: Abnormal gallbladder, distended with multiple stones and prominent common duct. Mild intrahepatic biliary duct dilatation is present. Cholecystitis would be consideration. Common duct stones may be present given the size of the common duct. Prominent hiatal hernia. Sanya Vela MD FACR Objective Remarks GENERAL: This is a well-nourished, well-developed patient, in no apparent distress. CARDIOVASCULAR: Regular rate and rhythm without murmurs RESPIRATORY: Clear to auscultation. Breath sounds equal bilaterally. No wheezes GASTROINTESTINAL: Abdomen soft, some discomfort w deep palpation, nondistended. No guarding or rebound. MUSCULOSKELETAL: Extremities without edema. NEUROLOGICAL: Awake and alert. Cranial nerves II through XII intact. Normal speech. PSYCH: Mood and affect appropriate. A/P Assessment and Plan Acute cholecystitis The patient developed symptoms of severe pain and nausea and vomiting. LFTs were quite elevated AST/ALT 869/419 now trending down AST/ALT 100/265 today. Continue to monitor closely. CT of the abdomen showed: Abnormal gallbladder, distended with multiple stones and prominent common duct; Mild intrahepatic biliary duct dilatation is present. Gen. surgery and GI following. s/p ERCP --> 6mm sphincterotomy, balloon sweep and 8.5x9cm stent placement POD 0. monitor LFTs. Pt would prefer to have cholecystectomy as an outpatient. - on clears - Continue Pain control with a bowel regimen. - Continue Antiemetics as needed. - Continue IV Unasyn. Seizure disorder The patient is on phenytoin. She says she has not had a seizure in over 50 years. -on home med Dilantin at 200 mg in the morning and one here 100 mg in the evening Discharge Planning monitor pt overnight. f/u on GI recs in AM Jaqueline Heck MD October 04, 2016 16:58 Jaqueline Heck MD October 04, 2016 16:58
[2016-10-04 20:00] VITALS: BP 116/55; PULSE 71; RESP 17; TEMP 98.2; O2SAT 97
[2016-10-04] MEDS: DEXT 5%-NACL 0.45% 1000 ML INJ 1,000 ML IV SCH (20:13)
[2016-10-04 21:24] VITALS: O2SAT 98
[2016-10-05] VITALS: BP 117/59; PULSE 73; RESP 18; TEMP 97.6; O2SAT 96
[2016-10-05] MEDS: ONDANSETRON HCL 4 MG/2 ML VIAL IVP PRN (02:46)
[2016-10-05] MEDS: AMPICILLIN-SULBACTAM INJ 3 GM in SODIUM CHLORIDE 0.9% INJ 100 ML IV SCH ×2 (02:48→09:37)
[2016-10-05 06:56] LABS: BASOPHIL % 0.5 % (0.0-2.0); EOSINOPHIL # 0.1 TH/MM3 (0-0.4); EOSINOPHIL % 1.8 % (0.0-4.0); HEMATOCRIT 36.2 % (35.0-46.0); HEMO FLAGS DIFF FINAL; LYMPH % 23.8 % (9.0-44.0); LYMPHOCYTE # 1.5 TH/MM3 (1.0-4.8); MEAN CELL VOLUME 93.8 FL (80.0-100.0); MEAN CORPUSCULAR HEMOGLOBIN 32.3 PG (27.0-34.0); MEAN CORPUSCULAR HGB CONC 34.4 % (32.0-36.0); MONO % 8.8 % (0.0-8.0); NEUT % 65.1 % (16.0-70.0); PLATELET COUNT 182 TH/MM3 (150-450); RED BLOOD COUNT 3.85 MIL/MM3 (4.00-5.30); RED CELL DISTRIBUTION WIDTH 12.3 % (11.6-17.2); WHITE BLOOD COUNT 6.1 TH/MM3 (4.0-11.0)
[2016-10-05 07:32] LABS: ALKALINE PHOSPHATASE 145 U/L (45-117); ALT (GPT) 127 U/L (10-53); ANION GAP 7 MEQ/L (5-15); AST (GOT) 35 U/L (15-37); BICARBONATE 25.8 MEQ/L (21.0-32.0); BLOOD UREA NITROGEN 9 MG/DL (7-18); CHLORIDE 108 MEQ/L (98-107); GLOMERULAR FILTRATION RATE 69 ML/MIN (>89); POTASSIUM 3.4 MEQ/L (3.5-5.1); SODIUM (NA) 141 MEQ/L (136-145); TOTAL BILIRUBIN ADULT 0.3 MG/DL (0.2-1.0)
[2016-10-05 08:25] VITALS: BP 130/66; PULSE 63; RESP 16; TEMP 97.4; O2SAT 96
[2016-10-05 08:50] VITALS: O2SAT 96
[2016-10-05] MEDS: SODIUM CHLORIDE 0.9% FLUSH 10 ML FLUSH IV FLUSH SCH (09:00)
[2016-10-05] MEDS: PHENYTOIN SODIUM 100 MG CAP PO SCH (09:38)
[2016-10-05] MEDS: DOCUSATE SODIUM 100 MG CAP PO SCH (09:39)
[2016-10-05] MEDS: DEXT 5%-NACL 0.45% 1000 ML INJ 1,000 ML IV SCH (09:44)
--- NOTE | 2016-10-05 10:29 | HHI.PR ---
Subjective Subjective Notes Resting in bed at bedside Feels hungry Objective Vitals/I&O Vital Signs Date Time Temp Pulse Resp B/P Pulse Ox O2 Delivery O2 Flow Rate FiO2 10/05/16 08:25 97.4 63 16 130/66 96 10/05/16 07:00 Room Air 10/04/16 21:24 2.00 Labs Laboratory Tests Test 10/05/16 06:19 White Blood Count 6.1 Red Blood Count 3.85 Hemoglobin 12.4 Hematocrit 36.2 Mean Corpuscular Volume 93.8 Mean Corpuscular Hemoglobin 32.3 Mean Corpuscular Hemoglobin 34.4 Concent Red Cell Distribution Width 12.3 Platelet Count 182 Mean Platelet Volume 9.4 Neutrophils (%) (Auto) 65.1 Lymphocytes (%) (Auto) 23.8 Monocytes (%) (Auto) 8.8 Eosinophils (%) (Auto) 1.8 Basophils (%) (Auto) 0.5 Neutrophils # (Auto) 4.0 Lymphocytes # (Auto) 1.5 Monocytes # (Auto) 0.5 Eosinophils # (Auto) 0.1 Basophils # (Auto) 0.0 CBC Comment DIFF FINAL Differential Comment Sodium Level 141 Potassium Level 3.4 Chloride Level 108 Carbon Dioxide Level 25.8 Anion Gap 7 Blood Urea Nitrogen 9 Creatinine 0.81 Estimat Glomerular Filtration 69 Rate Random Glucose 116 Calcium Level 8.1 Total Bilirubin 0.3 Aspartate Amino Transf 35 (AST/SGOT) Alanine Aminotransferase 127 (ALT/SGPT) Alkaline Phosphatase 145 Total Protein 6.3 Albumin 2.9 Lipase 583 Cardiovascular: Regular Lungs: Clear Abdomen: Non-distended, Non-tender Extremities: No edema A/P Assessment and Plan 75 year old female with CBD stone -S/p ERCP; lipase bumped to 580 (likely post procedure) -Advance to heart healthy diet -If pain controlled and able to tolerated regular diet okay to DC from GS standpoint -Patient would prefer to have lap reen done as outpatient in a few weeks -Discussed with the plan Attending Statement The exam, history, and the medical decision-making described in the above note were completed with the assistance of the mid-level provider. I reviewed and agree with the findings presented. I attest that I had a [id number] encounter with the patient on the same day, and personally performed and documented my assessment and findings in the medical record. Abdominal exam benign declines inpatient treatment, wants to fu closely as OP for lap Debbie Ny October 05, 2016 10:29 Lj Omalley MD November 02, 2016 11:33
--- NOTE | 2016-10-05 10:42 | HHI.PR ---
Subjective Remarks Follow up abdominal pain, cholecystitis. The patient states that she feels much better today. Abdominal pain has resolved. No nausea or vomiting. She had a popsicle this morning, but has not tried any other food. Objective Vitals Vital Signs Date Time Temp Pulse Resp B/P Pulse Ox O2 Delivery O2 Flow Rate FiO2 10/05/16 08:25 97.4 63 16 130/66 96 10/05/16 07:00 Room Air 10/05/16 00:00 97.6 73 18 117/59 96 10/04/16 21:24 98 Nasal Cannula 2.00 10/04/16 20:00 98.2 71 17 116/55 97 10/04/16 18:47 Room Air 10/04/16 14:56 95.9 67 16 148/82 97 10/04/16 14:30 68 20 160/69 96 Room Air 10/04/16 14:15 80 15 148/74 100 Nasal Cannula 2 10/04/16 14:00 73 15 143/67 100 Nasal Cannula 2 10/04/16 13:50 98.0 78 22 141/64 99 Nasal Cannula 2 I/O 10/04/16 10/04/16 10/04/16 10/05/16 10/05/16 10/05/16 07:00 15:00 23:00 07:00 15:00 23:00 Intake Total 0 ml 600 ml 610 ml 1098 ml Balance 0 ml 600 ml 610 ml 1098 ml Intake Oral 0 ml 0 ml 240 ml 240 ml IV Total 370 ml 858 ml Other 600 ml # Voids 1 3 1 1 # Bowel Movements 0 1 0 0 Result Diagram: 10/05/16 0619 10/05/16 0619 Imaging Last Impressions GI Procedure 10/04/16 0000 Signed Impressions: Service Date/Time: Tuesday, October 04, 2016 13:13 - CONCLUSION: ERCP as above. Tam Torres Jr., MD Cholangiopancreatography MRI 10/02/16 0000 Signed Impressions: Service Date/Time: Sunday, October 02, 2016 17:32 - CONCLUSION: Cholelithiasis and choledocholithiasis. Kyle Wheeler MD Abdomen/Pelvis CT 10/01/16 0716 Signed Impressions: Service Date/Time: Saturday, October 01, 2016 07:54 - CONCLUSION: Abnormal gallbladder, distended with multiple stones and prominent common duct. Mild intrahepatic biliary duct dilatation is present. Cholecystitis would be consideration. Common duct stones may be present given the size of the common duct. Prominent hiatal hernia. Sanya Vela MD FACR Objective Remarks General: Elderly female in no acute distress. Heart: Regular rate and rhythm. No murmur. Lungs: Clear to auscultation bilaterally. No wheezes, rales, or rhonchi. Breathing is nonlabored. Abdomen: Soft, nontender, nondistended. Extremities: No lower extremity edema. SCDs. Psych: Alert and oriented. Procedures 10/04/16 ERCP with sphincterotomy/papillotomy, removal of calculus, stent placement Urinary Catheter: No Vascular Central Line Catheter: No A/P Problem List: (1) Cholecystitis, acute with cholelithiasis ICD Code: K80.00 Status: Acute (2) Seizure disorder ICD Code: G40.909 Status: Chronic (3) Elevated LFTs ICD Code: R94.5 Status: Acute Assessment and Plan 1. Acute cholecystitis, cholelithiasis: Status post ERCP with sphincterotomy and stent placement. Cleared for discharge by general surgery with instructions for outpatient follow-up. Plan is for elective cholecystectomy as outpatient. Abdominal pain has improved. Diet advanced. 2. Elevated LFTs: Trending down. Follow-up with GI. 3. Seizure disorder: Continue phenytoin. 4. DVT prophylaxis: SCDs. Discharge Planning Plan for discharge home today if patient tolerates heart healthy diet for lunch. Problem Qualifiers (1) Cholecystitis, acute with cholelithiasis: Qualified Code: K80.62 - Calculus of gallbladder and bile duct with acute cholecystitis without obstruction Serg Meek MD October 05, 2016 10:42
--- NOTE | 2016-10-05 10:52 | HHI.DCPOC ---
Discharge Care Plan Diagnosis: (1) Seizure disorder (2) Elevated LFTs (3) Cholecystitis, acute with cholelithiasis Goals to Promote Your Health * To prevent worsening of your condition and complications * To maintain your health at the optimal level Directions to Meet Your Goals Take your medications as prescribed Follow your dietary instruction Follow activity as directed Keep your appointments as scheduled Take your immunizations and boosters as scheduled If your symptoms worsen call your PCP, if no PCP go to Urgent Care Center or Emergency Room Smoking is Dangerous to Your Health. Avoid second hand smoke Call the 24-hour hour crisis hotline for domestic abuse at Serg Meek MD October 05, 2016 10:52
[2016-10-05 12:12] VITALS: BP 130/62; PULSE 72; RESP 16; TEMP 98.1; O2SAT 96
--- NOTE | 2016-10-05 12:17 | HHI.GIFU ---
Subjective Remarks Resting in bed. Tolerating diet. No n/v. No abdominal pain. Would like to go home. (Maria De Jesus Kruse) Objective Vitals I&O Vital Signs Date Time Temp Pulse Resp B/P Pulse Ox O2 Delivery O2 Flow Rate FiO2 10/05/16 08:50 96 21 10/05/16 08:25 97.4 63 16 130/66 96 10/05/16 07:00 Room Air 10/05/16 00:00 97.6 73 18 117/59 96 10/04/16 21:24 98 Nasal Cannula 2.00 10/04/16 20:00 98.2 71 17 116/55 97 10/04/16 18:47 Room Air 10/04/16 14:56 95.9 67 16 148/82 97 10/04/16 14:30 68 20 160/69 96 Room Air 10/04/16 14:15 80 15 148/74 100 Nasal Cannula 2 10/04/16 14:00 73 15 143/67 100 Nasal Cannula 2 10/04/16 13:50 98.0 78 22 141/64 99 Nasal Cannula 2 I/O 10/04/16 10/04/16 10/04/16 10/05/16 10/05/16 10/05/16 07:00 15:00 23:00 07:00 15:00 23:00 Intake Total 0 ml 600 ml 610 ml 1098 ml Balance 0 ml 600 ml 610 ml 1098 ml Intake Oral 0 ml 0 ml 240 ml 240 ml IV Total 370 ml 858 ml Other 600 ml # Voids 1 3 1 1 # Bowel Movements 0 1 0 0 Laboratory Laboratory Tests Test 10/05/16 06:19 White Blood Count 6.1 Red Blood Count 3.85 Hemoglobin 12.4 Hematocrit 36.2 Mean Corpuscular Volume 93.8 Mean Corpuscular Hemoglobin 32.3 Mean Corpuscular Hemoglobin 34.4 Concent Red Cell Distribution Width 12.3 Platelet Count 182 Mean Platelet Volume 9.4 Neutrophils (%) (Auto) 65.1 Lymphocytes (%) (Auto) 23.8 Monocytes (%) (Auto) 8.8 Eosinophils (%) (Auto) 1.8 Basophils (%) (Auto) 0.5 Neutrophils # (Auto) 4.0 Lymphocytes # (Auto) 1.5 Monocytes # (Auto) 0.5 Eosinophils # (Auto) 0.1 Basophils # (Auto) 0.0 CBC Comment DIFF FINAL Differential Comment Sodium Level 141 Potassium Level 3.4 Chloride Level 108 Carbon Dioxide Level 25.8 Anion Gap 7 Blood Urea Nitrogen 9 Creatinine 0.81 Estimat Glomerular Filtration 69 Rate Random Glucose 116 Calcium Level 8.1 Total Bilirubin 0.3 Aspartate Amino Transf 35 (AST/SGOT) Alanine Aminotransferase 127 (ALT/SGPT) Alkaline Phosphatase 145 Total Protein 6.3 Albumin 2.9 Lipase 583 Imaging Last Impressions GI Procedure 10/04/16 0000 Signed Impressions: Service Date/Time: Tuesday, October 04, 2016 13:13 - CONCLUSION: ERCP as above. Tam Torres Jr., MD Cholangiopancreatography MRI 10/02/16 0000 Signed Impressions: Service Date/Time: Sunday, October 02, 2016 17:32 - CONCLUSION: Cholelithiasis and choledocholithiasis. Kyle Wheeler MD Abdomen/Pelvis CT 10/01/16 0716 Signed Impressions: Service Date/Time: Saturday, October 01, 2016 07:54 - CONCLUSION: Abnormal gallbladder, distended with multiple stones and prominent common duct. Mild intrahepatic biliary duct dilatation is present. Cholecystitis would be consideration. Common duct stones may be present given the size of the common duct. Prominent hiatal hernia. Sanya Vela MD FACR Physical Exam HEENT: Normocephalic CHEST: CTA CARDIAC: RRR ABDOMEN: Soft, nondistended, nontender; no hepatosplenomegaly; bowel sounds are present in all four quadrants. EXTREMITIES: No clubbing, cyanosis, or edema. SKIN: Normal; no rash; no jaundice. LOGGING EQUIPMENT OPERATOR: No focal deficits; alert and oriented times three. (Maria De Jesus Kruse [facility]) Assessment and Plan Plan ASSESSMENT: - Choledocholithiasis. Abdomen/Pelvis CT (10/01/16)----> Abnormal gallbladder, distended with multiple stones and prominent common duct. Mild intrahepatic biliary duct dilatation is present. Cholecystitis would be consideration. Common duct stones may be present given the size of the common duct. Prominent hiatal hernia. MRCP (10/02/16)---> Cholelithiasis and choledocholithiasis. S/P ERCP with sphincterotomy, balloon sweep, stent placement (10/04/16)----> 6mm sphincterotomy, balloon sweep x 3 with 8.5 mm balloon. 8.5 x 9cm stent placed. GS following, plan for lap. rene as outpatient. LFTs imrpving. T. Bili 0.3, AST 35, ALT 127, ALk Phosph 145. Slight bump in lipase, 583 - Cholelithiasis, Cholecystitis. GS following, lap. rene as outpatient. - Seizure disorder: Per primary. Stable. Patient is on Phenytoin. PLAN: - Okay to d/c home from GI standpoint - FU LIBORIO - Will need repeat ercp with stent removal in 3 months - Pt seen and examined by Dr. Villanueva and myself and this note is written on his behalf (Maria De Jesus Kruse) Physician Comments Seen and examined , doing well post ercp. Needs fu with gi in 4 weeks to schedule removal of stent. Thank you (Evens Villanueva MD) Maria De Jesus Kruse October 05, 2016 12:17 Evens Villanueva MD October 05, 2016 14:42
--- NOTE | 2016-10-05 14:54 | HHI.DS ---
Discharge Summary Admission Date Oct 01, 2016 at 09:08 Discharge Date: October 05, 2016 Admitting Diagnosis acute cholecystitis (1) Cholecystitis, acute with cholelithiasis ICD Code: K80.00 (2) Seizure disorder ICD Code: G40.909 (3) Elevated LFTs ICD Code: R94.5 Procedures 10/04/16 ERCP with sphincterotomy/papillotomy, removal of calculus, stent placement Brief History - From Admission The patient is a 75-year-old female with a past medical history of seizure disorder who is presenting to the hospital with severe abdominal pain and nausea and vomiting. The patient says that yesterday she received a cortisone injection in her left foot for plantar fasciitis. After that she went to the [facility] and had a Mor[place] salad. Once she got home she started developing severe abdominal pain. She said the pain was located all over the front of her stomach and it seemed to start spreading upwards. She said the pain was 10 out of 10 in severity. She tried self inducing vomiting several times to try to alleviate the symptoms. She said that did not help. She also tried taking Alpa -Aniwa and Pepto-Bismol and those also did not help. She was unable to go to sleep and decided to come to the hospital for further evaluation. Currently she says all her symptoms have resolved. She does not have much of an appetite at this time. CBC/BMP: 10/05/16 0619 10/05/16 0619 Significant Findings Laboratory Tests Test 10/03/16 10/05/16 05:13 06:19 Chloride Level 108 MEQ/L 108 MEQ/L (98-107) (98-107) Estimat Glomerular Filtration 71 ML/MIN (>89) 69 ML/MIN (>89) Rate Random Glucose 110 MG/DL 116 MG/DL (74-106) (74-106) Calcium Level 8.2 MG/DL 8.1 MG/DL (8.5-10.1) (8.5-10.1) Aspartate Amino Transf 100 U/L (15-37) (AST/SGOT) Alanine Aminotransferase 265 U/L (10-53) 127 U/L (10-53) (ALT/SGPT) Alkaline Phosphatase 179 U/L 145 U/L (45-117) (45-117) Albumin 3.1 GM/DL 2.9 GM/DL (3.4-5.0) (3.4-5.0) Red Blood Count 3.85 MIL/MM3 (4.00-5.30) Monocytes (%) (Auto) 8.8 % (0.0-8.0) Potassium Level 3.4 MEQ/L (3.5-5.1) Total Protein 6.3 GM/DL (6.4-8.2) Lipase 583 U/L (73-393) Imaging Last Impressions GI Procedure 10/04/16 0000 Signed Impressions: Service Date/Time: Tuesday, October 04, 2016 13:13 - CONCLUSION: ERCP as above. Tam Torres Jr., MD Cholangiopancreatography MRI 10/02/16 0000 Signed Impressions: Service Date/Time: Sunday, October 02, 2016 17:32 - CONCLUSION: Cholelithiasis and choledocholithiasis. K. Yordan Wheeler MD Abdomen/Pelvis CT 10/01/16 0716 Signed Impressions: Service Date/Time: Saturday, October 01, 2016 07:54 - CONCLUSION: Abnormal gallbladder, distended with multiple stones and prominent common duct. Mild intrahepatic biliary duct dilatation is present. Cholecystitis would be consideration. Common duct stones may be present given the size of the common duct. Prominent hiatal hernia. Sanya Vela MD FACR PE at Discharge General: Elderly female in no acute distress. Heart: Regular rate and rhythm. No murmur. Lungs: Clear to auscultation bilaterally. No wheezes, rales, or rhonchi. Breathing is nonlabored. Abdomen: Soft, nontender, nondistended. Extremities: No lower extremity edema. SCDs. Psych: Alert and oriented. Hospital Course The patient was admitted for evaluation and management of acute cholecystitis. GI and general surgery were consulted. Patient had ERCP with sphincterotomy and stent placement. The patient opted to defer surgical intervention at this time and requested outpatient follow-up for elective cholecystectomy in the near future. Her abdominal pain improved throughout the hospitalization. Her diet was advanced. She was cleared for discharge by GI and gastroenterology. Pt Condition on Discharge: Stable Discharge Disposition: Discharge Home Discharge Time: > 30 minutes Discharge Instructions DIET: Follow Instructions for: Heart Healthy Diet Activities you can perform: Regular-No Restrictions Follow up Referrals: Gastroenterology - 3 Weeks @ [facility] PCP Follow-up Surgical - 10 Days with Lj Omalley MD Continued Medications: Phenytoin Extended (Phenytoin Extended) 200 Mg Cap 200 MG PO DAILY Control Seizures #90 Ref 0 CAP Phenytoin Extended (Phenytoin Extended) 100 Mg Cap 100 MG PO HS Control Seizures #90 Ref 0 CAP Serg Meek MD October 05, 2016 14:54
== END 2016-10-05 12:56 | disposition home or self-care (01) | DRG 446 ==
LOC: PHED 06:12 → PHEDA 09:08 → N06A 14:29
PROVIDERS: ADMIT Family Medicine; ATTEND Family Medicine
PROC: BF131ZZ Fluoroscopy of Gallbladder and Bile Ducts using Low Osmolar Contrast (ICD-10-PCS; 2016-10-04)
PROC: 0F798DZ Dilation of Common Bile Duct with Intraluminal Device, Via Natural or Artificial Opening Endoscopic (ICD-10-PCS; 2016-10-04)
PROC: 0FC98ZZ Extirpation of Matter from Common Bile Duct, Via Natural or Artificial Opening Endoscopic (ICD-10-PCS; principal; 2016-10-04 12:40)
DX: K80.62 Calculus of gallbladder and bile duct with acute cholecystitis without obstruction (principal); G40.909 Epilepsy, unspecified, not intractable, without status epilepticus; M72.2 Plantar fascial fibromatosis; R79.89 Other specified abnormal findings of blood chemistry; M81.0 Age-related osteoporosis without current pathological fracture; K44.9 Diaphragmatic hernia without obstruction or gangrene
CPT/HCPCS: 74177; 74181; 74330; 76377; 80053; 82948; 83690; 85025; 85027; 85610; 85730; 93005; 96374; 96375; C1769; C2625; J0295; J1200; J2250; J2270; J2405; J3010; Q9967

== ENCOUNTER 2016-10-09 07:07 | Emergency (ER) | payer MEDICARE, OTHER ==
[~2016-10-09] VITALS: Ht 152.4 cm; Wt 61.0 kg
[~2016-10-09 07:07] MED LIST changes: -DILA100C PO; -FOSA35TA2 PO; -INDO25CA PO; -LORT7.5T3 PO; -MEDR4TAB PO; +PHEN100C PO; +PHEN200C3 PO; -SULF1TAB47 PO
[2016-10-09 07:09] VITALS: BP 145/70; PULSE 95; RESP 24; TEMP 98.6; O2SAT 97
[2016-10-09] MEDS ORDERED: SODIUM CHLORIDE 0.9% FLUSH 10 ML FLUSH IVF PRN (07:45)
[2016-10-09] MEDS ORDERED: SODIUM CHLOR 0.9% 1000 ML INJ 1,000 ML IV ONE (07:45)
--- NOTE | 2016-10-09 07:53 | PD ---
HPI Chief Complaint: Pain: Acute or Chronic Time Seen by Provider: 07:26 Travel History International Travel<30 days: No Contact w/Intl Traveler<30days: No Traveled to known affect area: No History of Present Illness HPI Patient is a 76 year old female who presents to ER with c/o of pains. Patient reports that she was recently was admitted to the hospital for 5 days as she had a stent placed to her gallbladder. Patient reports that she was discharged from the hospital on Tuesday. Reports that since Tuesday night, she's had increased pain and cramping to her left knee, ports that she has had pains to her body, reports that her left shoulder was hurting her and her right shoulder was hurting her but reports that her shoulders feel better at this time. Reports that she feels "all crampy" everywhere after she was discharged from the hospital. Patient at this time, denies chest pain or shortness of breath. Patient denies any abdominal pain, nausea or vomiting. Patient reports that the majority of her pain is in her right knee. Reports that she is able to ambulate but reports that she does have pain with ambulation. 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) Cancer: No Cardiovascular Problems: No Endocrine: No Gastrointestinal Disorders: Yes Genitourinary: No Headaches: Yes Immune Disorder: No Musculoskeletal: Yes (OSTEOPOROSIS) Neurologic: Yes Psychiatric: No Respiratory: No Seizures: Yes Tetanus Vaccination: > 5 Years Influenza Vaccination: Yes : 1 Para: 1 Past Surgical History Abdominal Surgery: Yes (GALLBLADDER- STENT PLACED IN BILE DUCT) Gynecologic Surgery: Yes (BREAST BIOPSY) Other Surgery: Yes Social History Alcohol Use: No Tobacco Use: No Substance Use: No Allergies-Medications (Allergen,Severity, Reaction): Coded Allergies: Morphine (Verified Adverse Reaction, Severe, Nausea/Vomiting, 10/09/16) "DRY HEAVES" Reported Meds & Prescriptions Reported Meds & Active Scripts Active Ibuprofen 600 Mg Tab 600 Mg PO Q6H PRN Percocet (Oxycodone-Acetaminophen) 5-325 mg Tab 1 Tab PO Q6H PRN Reported Phenytoin Extended 100 Mg Cap 100 Mg PO HS Phenytoin Extended 200 Mg Cap 200 Mg PO DAILY Review of Systems General / Constitutional: No: Fever Eyes: No: Visual changes HENT: No: Headaches Cardiovascular: No: Chest Pain or Discomfort Respiratory: No: Shortness of Breath Gastrointestinal: No: Abdominal Pain Genitourinary: No: Dysuria Musculoskeletal: Positive: Arthralgias, Pain (right knee) Skin: No Rash Neurologic: No: Weakness Psychiatric: No: Depression Endocrine: No: Polydipsia Hematologic/Lymphatic: No: Easy Bruising Physical Exam Narrative GENERAL: NAD, Nontoxic SKIN: Focused skin assessment warm/dry. HEAD: Atraumatic. Normocephalic. EYES: Pupils equal and round. No scleral icterus. No injection or drainage. ENT: No nasal bleeding or discharge. Mucous membranes pink and moist. NECK: Trachea midline. No JVD. CARDIOVASCULAR: Regular rate and rhythm. No murmur appreciated. RESPIRATORY: No accessory muscle use. Clear to auscultation. Breath sounds equal bilaterally. GASTROINTESTINAL: Abdomen soft, non-tender, nondistended. Hepatic and splenic margins not palpable. MUSCULOSKELETAL: No obvious deformities. No clubbing. No cyanosis. No edema. Patient with pain with range of motion to right knee, patient with pain to right calf, no fractures, no deformities. Patient with good range of motion to bilateral shoulders NEUROLOGICAL: Awake and alert. No obvious cranial nerve deficits. Motor grossly within normal limits. Normal speech. PSYCHIATRIC: Appropriate mood and affect; insight and judgment normal. Data Data Last Documented VS Vital Signs Date Time Temp Pulse Resp B/P Pulse Ox O2 Delivery O2 Flow Rate FiO2 10/09/16 07:23 81 18 10/09/16 07:09 98.6 145/70 97 Room Air Orders Complete Blood Count With Diff (10/09/16 07:33) Comprehensive Metabolic Panel (10/09/16 07:33) Magnesium (Mg) (10/09/16 07:33) Prothrombin Time / Inr (Pt) (10/09/16 07:33) Act Partial Throm Time (Ptt) (10/09/16 07:33) Iv Access Insert/Monitor (10/09/16 07:33) Sodium Chloride 0.9% Flush (Ns Flush) (10/09/16 07:45) Sodium Chlor 0.9% 1000 Ml Inj (Ns 1000 M (10/09/16 07:45) Us Leg Venous Doppler Bilat (10/09/16 ) Knee, Complete (4vws) (10/09/16 ) Oxycodone-Acetamin 5-325 Mg (Percocet (10/09/16 08:00) Labs Laboratory Tests Test 10/09/16 08:00 White Blood Count 7.1 TH/MM3 Red Blood Count 4.36 MIL/MM3 Hemoglobin 14.0 GM/DL Hematocrit 40.4 % Mean Corpuscular Volume 92.9 FL Mean Corpuscular Hemoglobin 32.2 PG Mean Corpuscular Hemoglobin 34.7 % Concent Red Cell Distribution Width 12.4 % Platelet Count 220 TH/MM3 Mean Platelet Volume 9.5 FL Neutrophils (%) (Auto) 65.0 % Lymphocytes (%) (Auto) 20.5 % Monocytes (%) (Auto) 11.5 % Eosinophils (%) (Auto) 2.1 % Basophils (%) (Auto) 0.9 % Neutrophils # (Auto) 4.6 TH/MM3 Lymphocytes # (Auto) 1.4 TH/MM3 Monocytes # (Auto) 0.8 TH/MM3 Eosinophils # (Auto) 0.1 TH/MM3 Basophils # (Auto) 0.1 TH/MM3 CBC Comment DIFF FINAL Differential Comment Prothrombin Time 11.6 SEC Prothromb Time International 1.0 RATIO Ratio Activated Partial 28.9 SEC Thromboplast Time Sodium Level 138 MEQ/L Potassium Level 4.0 MEQ/L Chloride Level 104 MEQ/L Carbon Dioxide Level 25.3 MEQ/L Anion Gap 9 MEQ/L Blood Urea Nitrogen 15 MG/DL Creatinine 0.92 MG/DL Estimat Glomerular Filtration 59 ML/MIN Rate Random Glucose 106 MG/DL Calcium Level 8.9 MG/DL Magnesium Level 2.5 MG/DL Total Bilirubin 0.4 MG/DL Aspartate Amino Transf 16 U/L (AST/SGOT) Alanine Aminotransferase 57 U/L (ALT/SGPT) Alkaline Phosphatase 141 U/L Total Protein 8.0 GM/DL Albumin 3.5 GM/DL MDM Medical Decision Making Medical Screen Exam Complete: Yes Emergency Medical Condition: Yes Interpretation(s) Vital Signs Date Time Temp Pulse Resp B/P Pulse Ox O2 Delivery O2 Flow Rate FiO2 10/09/16 07:23 81 18 10/09/16 07:09 98.6 95 24 145/70 97 Room Air Laboratory Tests Test 10/09/16 08:00 White Blood Count 7.1 TH/MM3 (4.0-11.0) Red Blood Count 4.36 MIL/MM3 (4.00-5.30) Hemoglobin 14.0 GM/DL (11.6-15.3) Hematocrit 40.4 % (35.0-46.0) Mean Corpuscular Volume 92.9 FL (80.0-100.0) Mean Corpuscular Hemoglobin 32.2 PG (27.0-34.0) Mean Corpuscular Hemoglobin 34.7 % Concent (32.0-36.0) Red Cell Distribution Width 12.4 % (11.6-17.2) Platelet Count 220 TH/MM3 (150-450) Mean Platelet Volume 9.5 FL (7.0-11.0) Neutrophils (%) (Auto) 65.0 % (16.0-70.0) Lymphocytes (%) (Auto) 20.5 % (9.0-44.0) Monocytes (%) (Auto) 11.5 % (0.0-8.0) Eosinophils (%) (Auto) 2.1 % (0.0-4.0) Basophils (%) (Auto) 0.9 % (0.0-2.0) Neutrophils # (Auto) 4.6 TH/MM3 (1.8-7.7) Lymphocytes # (Auto) 1.4 TH/MM3 (1.0-4.8) Monocytes # (Auto) 0.8 TH/MM3 (0-0.9) Eosinophils # (Auto) 0.1 TH/MM3 (0-0.4) Basophils # (Auto) 0.1 TH/MM3 (0-0.2) CBC Comment DIFF FINAL Differential Comment Prothrombin Time 11.6 SEC (9.8-11.6) Prothromb Time International 1.0 RATIO Ratio Activated Partial 28.9 SEC Thromboplast Time (24.3-30.1) Sodium Level 138 MEQ/L (136-145) Potassium Level 4.0 MEQ/L (3.5-5.1) Chloride Level 104 MEQ/L (98-107) Carbon Dioxide Level 25.3 MEQ/L (21.0-32.0) Anion Gap 9 MEQ/L (5-15) Blood Urea Nitrogen 15 MG/DL (7-18) Creatinine 0.92 MG/DL (0.50-1.00) Estimat Glomerular Filtration 59 ML/MIN (>89) Rate Random Glucose 106 MG/DL (74-106) Calcium Level 8.9 MG/DL (8.5-10.1) Magnesium Level 2.5 MG/DL (1.5-2.5) Total Bilirubin 0.4 MG/DL (0.2-1.0) Aspartate Amino Transf 16 U/L (15-37) (AST/SGOT) Alanine Aminotransferase 57 U/L (10-53) (ALT/SGPT) Alkaline Phosphatase 141 U/L (45-117) Total Protein 8.0 GM/DL (6.4-8.2) Albumin 3.5 GM/DL (3.4-5.0) Last Impressions Lower Extremity Ultrasound 10/09/16 0000 Signed Impressions: Service Date/Time: Sunday, October 09, 2016 08:17 - CONCLUSION: 1. No evidence of deep venous thrombosis. 2. Small Russell's cyst in the right popliteal fossa. Timmy Mcgregor MD Knee X-Ray 10/09/16 0000 Signed Impressions: Service Date/Time: Sunday, October 09, 2016 07:48 - CONCLUSION: 1. Small joint effusion. 2. Chondrocalcinosis most characteristic of osteoarthritis. Timmy Mcgregor MD Differential Diagnosis DVT, knee strain, arthritis, rhabdomyolysis, decompensation due to recent hospitalization/ immobilization, Russell cyst Narrative Course Patient is a 68-year-old female who was recently admitted for 5 days to the hospital for acute cholecystitis, a stent placed and is scheduled for cholecystectomy on October 15, [address] Omalley. Patient reports that ever since she left the hospital, patient has been having increased pains to her right lower extremity, Reports that she has aches all over her body including her shoulders. Patient reports that the majority of her pain is in her right lower extremity is her right knee. Patient denies any fevers or chills, denies any fall or trauma. Overall, patient is nontoxic and evaluation. Plan to obtain ultrasound of legs to rule out DVT. Will x-ray right knee. I do think that patient's pain is due to immobility/decompensation as she was hospitalized for 5 days and reports that she only got up to use the restroom. She may require PT - will review case with case packer for possibly home PT Patient's allergy to morphine is that it makes her feel "jittery."\\\\CBC & BMP Diagram 10/09/16 08:00 Last Impressions Lower Extremity Ultrasound 10/09/16 0000 Signed Impressions: Service Date/Time: Sunday, October 09, 2016 08:17 - CONCLUSION: 1. No evidence of deep venous thrombosis. 2. Small Russell's cyst in the right popliteal fossa. Timmy Mcgregor MD Knee X-Ray 10/09/16 0000 Signed Impressions: Service Date/Time: Sunday, October 09, 2016 07:48 - CONCLUSION: 1. Small joint effusion. 2. Chondrocalcinosis most characteristic of osteoarthritis. Timmy Mcgregor MD I reviewed all labs and all studies with patient in detail. Copies of radiology reports were given to patient. Patient reports that she is feeling much better at this time. Patient's symptoms most likely from osteoarthritis as well as Russell cyst. Plan to discharge patient to home with follow-up with orthopedic surgery. Understands need for repeat ultrasound of leg in one week if swelling persists. Signs and symptoms of when to return to the emergency room was reviewed patient in detail. Patient will be given a prescription for Percocet, understands that taking narcotic pain medications can lower seizure threshold, patient will only use this for breakthrough pain and will use ibuprofen or Tylenol first Diagnosis Primary Impression: Joint effusion of knee Additional Impressions: Osteoarthritis Qualified Code: M17.11 - Primary osteoarthritis of right knee Russell's cyst of knee Qualified Code: M71.21 - Russell's cyst of knee, right Referrals: Jun Santoro MD Patient Instructions: General Instructions, Narcotic given in the ED Additional Instructions: Please follow-up with orthopedic surgeon in 2-3 days Have your ultrasound of your leg repeated in 1 week if symptoms worsen or persist Please follow-up with your primary care doctor Tuesday Return to emergency room if symptoms worsen or progress Do not drive while taking narcotic pain medications Med/Other Pt SpecificInfo: Prescription(s) given Scripts Ibuprofen 600 Mg [id number] Mg PO Q6H PRN (Pain/Inflammation) #40 TAB Ref 0 Prov:Bernie Llamas DO 10/09/16 Oxycodone-Acetaminophen (Percocet)5-325 mg Tab1 Tab PO Q6H PRN (PAIN) #12 TAB Ref 0 Prov:Bernie Llamas DO 10/09/16 Disposition: 01 DISCHARGE HOME Condition: Stable Bernie Llamas DO October 09, 2016 07:53
[2016-10-09] MEDS ORDERED: oxyCODONE/ACETAMINOPHEN 5 MG/325 MG TAB PO ONE (08:00)
[2016-10-09 08:12] LABS: AUTOMATED NEUTROPHIL # 4.6 TH/MM3 (1.8-7.7); BASOPHIL # 0.1 TH/MM3 (0-0.2); BASOPHIL % 0.9 % (0.0-2.0); EOSINOPHIL # 0.1 TH/MM3 (0-0.4); EOSINOPHIL % 2.1 % (0.0-4.0); HEMATOCRIT 40.4 % (35.0-46.0); HEMO FLAGS DIFF FINAL; LYMPH % 20.5 % (9.0-44.0); LYMPHOCYTE # 1.4 TH/MM3 (1.0-4.8); MEAN CELL VOLUME 92.9 FL (80.0-100.0); MEAN CORPUSCULAR HEMOGLOBIN 32.2 PG (27.0-34.0); MEAN CORPUSCULAR HGB CONC 34.7 % (32.0-36.0); MONO % 11.5 % (0.0-8.0); PLATELET COUNT 220 TH/MM3 (150-450); RED BLOOD COUNT 4.36 MIL/MM3 (4.00-5.30); RED CELL DISTRIBUTION WIDTH 12.4 % (11.6-17.2); WHITE BLOOD COUNT 7.1 TH/MM3 (4.0-11.0)
[2016-10-09 08:20] LABS: APTT (PATIENT) 28.9 SEC (24.3-30.1); PROTHROMBIN TIME - PATIENT 11.6 SEC (9.8-11.6)
--- NOTE | 2016-10-09 08:22 | RADRPT ---
EXAM DATE/TIME: 10/09/2016 07:48 [facility] COMPARISON: No previous studies available for comparison. INDICATIONS : Right Knee Pain, No Trauma MEDICAL HISTORY : Osteoporosis. Seizures SURGICAL HISTORY : None. ENCOUNTER: Initial ACUITY: 2 days PAIN SCORE: 10/10 LOCATION: Right Knee FINDINGS: A standard 4 view examination of the right knee was obtained and demonstrate chondrocalcinosis in the medial and lateral compartments. There is slight sclerosis with no spurring. There is fullness in th e suprapatellar bursa region consistent with a joint effusion. There is mild osteopenia and normal al ignment. CONCLUSION: 1. Small joint effusion. 2. Chondrocalcinosis most characteristic of osteoarthritis. Timmy Mcgregor MD on October 09, 2016 at 8:18 Board Certified Radiologist. This report was verified electronically.
[2016-10-09 08:29] LABS: ALT (GPT) 57 U/L (10-53); ANION GAP 9 MEQ/L (5-15); AST (GOT) 16 U/L (15-37); BICARBONATE 25.3 MEQ/L (21.0-32.0); BLOOD UREA NITROGEN 15 MG/DL (7-18); CHLORIDE 104 MEQ/L (98-107); GLOMERULAR FILTRATION RATE 59 ML/MIN (>89); MAGNESIUM 2.5 MG/DL (1.5-2.5); SODIUM (NA) 138 MEQ/L (136-145)
[2016-10-09 08:30] LABS: ALKALINE PHOSPHATASE 141 U/L (45-117); TOTAL BILIRUBIN ADULT 0.4 MG/DL (0.2-1.0)
--- NOTE | 2016-10-09 08:44 | RADRPT ---
EXAM DATE/TIME: 10/09/2016 08:17 [facility] COMPARISON: No previous studies available for comparison. INDICATIONS : Bilateral leg edema and pain. MEDICAL HISTORY : Osteoporosis. Arthritis. Seizures. Head trauma. Gallstones. SURGICAL HISTORY : GB stent placed in bile duct. Breast biopsy. Little toe on right foot. ENCOUNTER: Initial ACUITY: 4 - 6 days PAIN SCORE: 7/10 LOCATION: Bilateral leg. TECHNIQUE: Venous ultrasound of the left and right leg was performed from the inguinal ligament to the proximal calf. Real-time, color Doppler and spectral tracing, compression and augmentation techniques were us ed. FINDINGS: RIGHT LEG: There is normal compressibility of the deep venous system from the inguinal region to the proximal ca lf. No echogenic clot is seen in the lumen of the common femoral, femoral, popliteal, and posterior tibial veins. There is a normal response of the venous system to proximal and distal augmentation an d respiration. There is a small Russell's cyst in the popliteal fossa measuring 2.3 x 3.4 x 1 cm. LEFT LEG: There is normal compressibility of the deep venous system from the inguinal region to the proximal ca lf. No echogenic clot is seen in the lumen of the common femoral, femoral, popliteal, and posterior tibial veins. There is a normal response of the venous system to proximal and distal augmentation an d respiration. CONCLUSION: 1. No evidence of deep venous thrombosis. 2. Small Russell's cyst in the right popliteal fossa. Timmy Mcgregor MD on October 09, 2016 at 8:41 Board Certified Radiologist. This report was verified electronically.
[2016-10-09] MEDS ORDERED: PERC5TAB12 PO (09:08)
[2016-10-09] MEDS ORDERED: IBUP-232 PO (09:09)
[2016-10-09 09:26] VITALS: BP 124/74
== END 2016-10-09 09:41 | disposition home or self-care (01) ==
LOC: NEPE 07:07
DX: M17.11 Unilateral primary osteoarthritis, right knee (principal); M71.21 Synovial cyst of popliteal space [Baker], right knee; Z79.899 Other long term (current) drug therapy
CPT/HCPCS: 73564; 80053; 83735; 85025; 85610; 85730; 93970; 96360; 99284; J7030

== ENCOUNTER 2016-10-20 00:08 | Observation (INO) | payer MEDICARE, OTHER ==
[~2016-10-20] VITALS: Ht 152.4 cm; Wt 61.0 kg
[2016-10-20] VITALS (10 sets, daily range): BP systolic 109–159; BP diastolic 53–74; PULSE 78–101; RESP 16–21; TEMP 96.4–98.8; O2SAT 94–100
[~2016-10-20 00:08] MED LIST changes: +IBUP-232 PO; +PERC5TAB12 PO
--- NOTE | 2016-10-20 00:58 | PD ---
HPI Chief Complaint: Abdominal Pain Time Seen by Provider: 00:32 Travel History International Travel<30 days: No Contact w/Intl Traveler<30days: No Traveled to known affect area: No History of Present Illness HPI The patient is a 76 year old female who presents to the [facility] emergency department with a history of abdominal pain that she reports began again today. The patient has a recent history of abdominal pain and diagnosis of acute cholecystitis with choledocholithiasis admitted to the hospital on October 01, 2016 for treatment. The patient underwent a GI consultation as well as a surgical consultation with Dr. Omalley. The patient was noted to have enlargement of the common bile duct and underwent ERCP with sphincterotomy/ papillotomy, removal of calculus and stent placement. The patient elected to follow-up as an outpatient with the general surgeon to schedule an elective cholecystectomy after. The patient reports that intermittently since being discharged his had abdominal pain. She reports that for 2 days this week she was able to eat small amounts, drink fluids, and was pain-free on the and . She reports that yesterday the pain recurred and she has had to take multiple doses of Percocet without relief. She reports that she's had dry heaving throughout most of the day and has not been able to eat or drink any fluids. The patient denies having any fevers or chills. She denies having any light coloration to her stool or dark coloration to her urine. She denies having any dysuria, hematuria, urinary urgency, or frequency. She reports that the pain is worse in the right upper quadrant of the abdomen and an aching sensation that comes and goes. She reports that at times it radiates to her back. She denies having any cough, congestion, neck pain, chest pain, shortness of breath, diarrhea, urinary symptoms, or neurologic symptoms. She does however report that she has had constipation postop. She last moved her bowels on Tuesday. PENDING SALE TO [facility] Past Medical History Narrative Medical The patient's past medical history is significant for arthritis, cholelithiasis with choledocholithiasis status post biliary stent placement, history of osteoporosis, history of epilepsy. Arthritis: Yes (BILATERAL HANDS NEAR THUMB) Cancer: No Cardiovascular Problems: No Diminished Hearing: No Endocrine: No Gastrointestinal Disorders: Yes Genitourinary: No Headaches: Yes Immune Disorder: No Musculoskeletal: Yes (OSTEOPOROSIS) Neurologic: Yes Psychiatric: No Respiratory: No Seizures: Yes Tetanus Vaccination: < 5 Years Influenza Vaccination: Yes ?: Not : 1 Para: 1 Past Surgical History Narrative Surgical The patient's past surgical history is significant for common bile duct stent placement, breast biopsy. Abdominal Surgery: Yes (GALLBLADDER- STENT PLACED IN BILE DUCT) Gynecologic Surgery: Yes (BREAST BIOPSY) Other Surgery: Yes Social History Alcohol Use: No Tobacco Use: No Substance Use: No Allergies-Medications (Allergen,Severity, Reaction): Coded Allergies: No Known Allergies (Unverified , 10/20/16) Reported Meds & Prescriptions Reported Meds & Active Scripts Active Percocet (Oxycodone-Acetaminophen) 5-325 mg Tab 1 Tab PO Q6H PRN Reported Phenytoin Extended 100 Mg Cap 100 Mg PO HS Phenytoin Extended 200 Mg Cap 200 Mg PO DAILY Review of Systems General / Constitutional: No: Fever Eyes: No: Visual changes HENT: No: Headaches Cardiovascular: No: Chest Pain or Discomfort Respiratory: No: Shortness of Breath Gastrointestinal: Positive: Nausea, Vomiting, Abdominal Pain, Constipation, Loss of Appetite, No: Diarrhea, Hematemesis, Hematochezia, Changes in Bowel Habits, Indigestion Genitourinary: No: Dysuria Musculoskeletal: No: Pain Skin: No Rash Neurologic: No: Weakness Psychiatric: No: Depression Endocrine: No: Polydipsia Hematologic/Lymphatic: No: Easy Bruising Physical Exam Narrative General: The patient is a well-developed well-nourished female in no acute distress. Head and Neck exam: Head is normocephalic atraumatic. Eyes: EOMI, pupils are equal round and reactive to light. Nose: Midline septum with pink mucous membranes Mouth: Dentition unremarkable. Moist mucus membranes. Posterior oropharynx is not erythematous. No tonsillar hypertrophy. Uvula midline. Airway patent. Neck: No palpable lymphadenopathy. No nuchal rigidity. No thyromegaly. Cardiovascular: Regular rate and rhythm without murmurs, gallops, or rubs. Lungs: Clear to auscultation bilaterally. No wheezes, rhonchi, or rales. Abdomen: Soft, with tenderness on palpation in the midepigastric area and right upper quadrant of the abdomen, no other tenderness on palpation of the other quadrants of the abdomen. No guarding, rebound, or rigidity. Positive Baraga sign. No tenderness on palpation of McBurney's point. Normal bowel sounds are audible. Extremities: No clubbing, cyanosis, or edema. 2+ pulses in all 4 extremities. No calf tenderness on palpation. Back: No spinous process tenderness to palpation. No costovertebral angle tenderness to palpation. Neurologic Exam: Grossly nonfocal. Skin Exam: No rash noted. Intact skin that is warm and dry. Data Data Last Documented VS Vital Signs Date Time Temp Pulse Resp B/P Pulse Ox O2 Delivery O2 Flow Rate FiO2 10/20/16 03:39 79 20 136/69 100 Room Air 10/20/16 00:12 98.0 Orders Electrocardiogram (10/20/16 00:42) Complete Blood Count With Diff (10/20/16 00:42) Comprehensive Metabolic Panel (10/20/16 00:42) Prothrombin Time / Inr (Pt) (10/20/16 00:42) Act Partial Throm Time (Ptt) (10/20/16 00:42) Lipase (10/20/16 00:42) Urinalysis - C+S If Indicated (10/20/16 00:42) Magnesium (Mg) (10/20/16 00:42) Iv Access Insert/Monitor (10/20/16 00:42) Ecg Monitoring (10/20/16 00:42) Oximetry (10/20/16 00:42) Lactic Acid (10/20/16 00:42) Sodium Chlor 0.9% 1000 Ml Inj (Ns 1000 M (10/20/16 01:00) Ondansetron Inj (Zofran Inj) (10/20/16 01:00) Hydromorphone Pf Inj (Dilaudid Pf Inj) (10/20/16 01:00) Ct Abd/Pel W Iv Contrast(Rout) (10/20/16 02:10) Iohexol 350 Inj (Omnipaque 350 Inj) (10/20/16 02:35) Hydromorphone Pf Inj (Dilaudid Pf Inj) (10/20/16 03:45) Piperacil-Tazo 3.375 Gm Premix (Zosyn 3. (10/20/16 03:45) Admit Order (Ed Use Only) (10/20/16 04:04) Labs Laboratory Tests Test 10/20/16 10/20/16 10/20/16 00:45 01:05 01:45 White Blood Count 9.4 TH/MM3 Red Blood Count 4.10 MIL/MM3 Hemoglobin 13.2 GM/DL Hematocrit 38.2 % Mean Corpuscular Volume 93.0 FL Mean Corpuscular Hemoglobin 32.1 PG Mean Corpuscular Hemoglobin 34.6 % Concent Red Cell Distribution Width 11.9 % Platelet Count 422 TH/MM3 Mean Platelet Volume 8.5 FL Neutrophils (%) (Auto) 75.3 % Lymphocytes (%) (Auto) 15.3 % Monocytes (%) (Auto) 5.6 % Eosinophils (%) (Auto) 2.5 % Basophils (%) (Auto) 1.3 % Neutrophils # (Auto) 7.1 TH/MM3 Lymphocytes # (Auto) 1.4 TH/MM3 Monocytes # (Auto) 0.5 TH/MM3 Eosinophils # (Auto) 0.2 TH/MM3 Basophils # (Auto) 0.1 TH/MM3 CBC Comment DIFF FINAL Differential Comment Prothrombin Time 11.7 SEC Prothromb Time International 1.1 RATIO Ratio Activated Partial 29.6 SEC Thromboplast Time Sodium Level 139 MEQ/L Potassium Level 3.8 MEQ/L Chloride Level 105 MEQ/L Carbon Dioxide Level 25.3 MEQ/L Anion Gap 9 MEQ/L Blood Urea Nitrogen 10 MG/DL Creatinine 0.67 MG/DL Estimat Glomerular Filtration 85 ML/MIN Rate Random Glucose 117 MG/DL Lactic Acid Level 0.8 mmol/L Calcium Level 8.8 MG/DL Magnesium Level 2.1 MG/DL Total Bilirubin 0.2 MG/DL Aspartate Amino Transf 18 U/L (AST/SGOT) Alanine Aminotransferase 25 U/L (ALT/SGPT) Alkaline Phosphatase 96 U/L Total Protein 7.2 GM/DL Albumin 2.8 GM/DL Lipase 280 U/L Urine Color LIGHT-YELLOW Urine Turbidity CLEAR Urine pH 6.0 Urine Specific Logan 1.005 Urine Protein NEG mg/dL Urine Glucose (UA) NEG mg/dL Urine Ketones NEG mg/dL Urine Occult Blood NEG Urine Nitrite NEG Urine Bilirubin NEG Urine Urobilinogen LESS THAN 2.0 MG/DL Urine Leukocyte Esterase NEG Urine WBC 1 /hpf Microscopic Urinalysis Comment CULT NOT INDICATED MDM Medical Decision Making Medical Screen Exam Complete: Yes Emergency Medical Condition: Yes Medical Record Reviewed: Yes Interpretation(s) Last Impressions Abdomen/Pelvis CT 10/20/16 0210 Signed Impressions: Service Date/Time: Thursday, October 20, 2016 02:34 - CONCLUSION: 1. Multiple gallstones with no definite inflammatory change. 2. Moderate size hiatal hernia again noted. 3. Interval placement of a biliary stent catheter. Timmy Mcgregor MD Differential Diagnosis Acute cholecystitis, versus recurrent biliary obstruction, versus acute pancreatitis versus electrolyte derangement, versus dehydration Narrative Course During the course of the patients emergency department visit, the patients history, examination, and differential diagnosis were reviewed with the patient. The patient had IV access obtained and blood work sent for analysis. The patient was placed on a cardiac rehabilitation program director with oximetry and blood pressure monitoring. A CT scan of the abdomen and pelvis was ordered. The patient was initially provided patient was given normal saline 1 L IV fluid bolus, hydromorphone 0.2 mg IV, Zofran 4 mg IV. The patients laboratory studies were reviewed and remarkable for a white count of 9.4, hemoglobin 13.2, platelets 422 with 75.3 neutrophils, CMP is remarkable for glucose 117, albumin 2.8, lipase 280, lactic acid 0.8. PT 11.7, PTT 29.7, urinalysis is unremarkable Radiology studies were reviewed and remarkable for CT scan of the abdomen and pelvis shows multiple gallstones with no definite inflammatory change, moderate size hiatal hernia, interval placement of a biliary stent catheter. The patient was reexamined and reported that her pain was recurring. The patient was given a second dose of hydromorphone 0.2 mg IV. A call was placed out to the general surgeon, . He was agreeable with the plan to proceed with admission. He requested that the patient be started on antibiotic. The patient was given Zosyn 3.375 g IV. The patients results were discussed with the patient, including the plan of care. I explained that further testing and/ or monitoring is indicated based on the patients history, examination, and/ or laboratory findings. Therefore, I recommended admission for additional evaluation. The patient expressed understanding and was agreeable with this plan. The patient was admitted to the hospital in stable condition and sent to a bed under the care of the general surgeon. Physician Communication Physician Communication The patient's case is discussed with , he agreed with the plan to admit the patient for pain control, IV antibiotic. He agreed to admit the patient if the hospitalist service was not interested in admitting the patient. The patient's case was discussed with . She agreed that the patient should primarily be admitted by the general surgeon as the patient has no other concerns other than acute cholecystitis. Diagnosis Primary Impression: Abdominal pain Qualified Code: R10.11 - Right upper quadrant abdominal pain Additional Impression: Cholecystitis, acute with cholelithiasis Qualified Code: K80.00 - Calculus of gallbladder with acute cholecystitis without obstruction Admitting Information Admitting Physician Requests: Harleen Walker MD October 20, 2016 00:58
[2016-10-20] MEDS ORDERED: SODIUM CHLOR 0.9% 1000 ML INJ 1,000 ML IV ONE (01:00)
[2016-10-20] MEDS ORDERED: ONDANSETRON HCL 4 MG/2 ML VIAL IV ONE (01:00)
[2016-10-20] MEDS ORDERED: HYDROmorphone HCL PF 1 MG/ML VIAL IV PUSH ONE ×2 (01:00→03:45)
[2016-10-20 01:14] LABS: AUTOMATED NEUTROPHIL # 7.1 TH/MM3 (1.8-7.7); BASOPHIL # 0.1 TH/MM3 (0-0.2); BASOPHIL % 1.3 % (0.0-2.0); EOSINOPHIL # 0.2 TH/MM3 (0-0.4); EOSINOPHIL % 2.5 % (0.0-4.0); HEMATOCRIT 38.2 % (35.0-46.0); HEMO FLAGS DIFF FINAL; LYMPH % 15.3 % (9.0-44.0); LYMPHOCYTE # 1.4 TH/MM3 (1.0-4.8); MEAN CORPUSCULAR HEMOGLOBIN 32.1 PG (27.0-34.0); MEAN CORPUSCULAR HGB CONC 34.6 % (32.0-36.0); MONO % 5.6 % (0.0-8.0); NEUT % 75.3 % (16.0-70.0); PLATELET COUNT 422 TH/MM3 (150-450); RED CELL DISTRIBUTION WIDTH 11.9 % (11.6-17.2); WHITE BLOOD COUNT 9.4 TH/MM3 (4.0-11.0)
[2016-10-20 01:20] LABS: APTT (PATIENT) 29.6 SEC (24.3-30.1); INTERNATIONAL NORMALIZED RATIO 1.1 RATIO; PROTHROMBIN TIME - PATIENT 11.7 SEC (9.8-11.6)
[2016-10-20 01:44] LABS: ALT (GPT) 25 U/L (10-53); ANION GAP 9 MEQ/L (5-15); AST (GOT) 18 U/L (15-37); BICARBONATE 25.3 MEQ/L (21.0-32.0); BLOOD UREA NITROGEN 10 MG/DL (7-18); CHLORIDE 105 MEQ/L (98-107); GLOMERULAR FILTRATION RATE 85 ML/MIN (>89); MAGNESIUM 2.1 MG/DL (1.5-2.5); POTASSIUM 3.8 MEQ/L (3.5-5.1); SODIUM (NA) 139 MEQ/L (136-145)
[2016-10-20 01:47] LABS: ALKALINE PHOSPHATASE 96 U/L (45-117); TOTAL BILIRUBIN ADULT 0.2 MG/DL (0.2-1.0)
[2016-10-20 02:04] LABS: BLOOD, URINE NEG (NEG); COMMENT (UR) CULT NOT INDICATED; CULTURE IF INDICATED CULT NOT INDICATED; GLUCOSE,URINE NEG (NEG); KETONE, URINE NEG (NEG); NITRITE,URINE NEG (NEG); URINE COLOR LIGHT-YELLOW (YELLW/STRAW)
[2016-10-20] MEDS ORDERED: IOHEXOL 350 MG/ML 10 ML VIAL (for RAD DIAG) IV ONE (02:35)
--- NOTE | 2016-10-20 03:09 | RADRPT ---
EXAM DATE/TIME: 10/20/2016 02:34 [place] COMPARISON: MRCP W/O CONTRAST, October 02, 2016, 17:32. CT ABDOMEN & PELVIS W CONTRAST, October 01, 2016, 7:54. INDICATIONS : Right upper qaudrant pain. Post biliary stent placement. IV CONTRAST: 70 cc Omnipaque 350 (iohexol) IV ORAL CONTRAST: No oral contrast ingested. RADIATION DOSE: 9.02. CTDIvol (mGy) MEDICAL HISTORY : Seizures. SURGICAL HISTORY : Billiary stent ENCOUNTER: Initial ACUITY: 2 days PAIN SCALE: 10/10 LOCATION: Right upper quadrant TECHNIQUE: Volumetric scanning of the abdomen and pelvis was performed. Using automated exposure control and ad justment of the mA and/or kV according to patient size, radiation dose was kept as low as reasonably achievable to obtain optimal diagnostic quality images. FINDINGS: LOWER LUNGS: The visualized lower lungs are clear. LIVER: Homogeneous density without lesion. There is no dilation of the biliary tree. There are multiple par tially calcified gallstones. There is been interval placement of a biliary stent catheter. SPLEEN: Normal size without lesion. PANCREAS: Within normal limits. KIDNEYS: Normal in size and shape. There is no mass, stone or hydronephrosis. ADRENAL GLANDS: Within normal limits. VASCULAR: There is no aortic aneurysm. BOWEL/MESENTERY: The stomach, small bowel, and colon demonstrate no acute abnormality. There is no free intraperitone al air or fluid. ABDOMINAL WALL: Within normal limits. RETROPERITONEUM: There is no lymphadenopathy. BLADDER: No wall thickening or mass. REPRODUCTIVE: Within normal limits. INGUINAL: There is no lymphadenopathy or hernia. MUSCULOSKELETAL: Within normal limits for patient age. CONCLUSION: 1. Multiple gallstones with no definite inflammatory change. 2. Moderate size hiatal hernia again noted. 3. Interval placement of a biliary stent catheter. Timmy Mcgregor MD on October 20, 2016 at 3:04 Board Certified Radiologist. This report was verified electronically.
[2016-10-20] MEDS ORDERED: PIPERACIL-TAZO 3.375 GM PREMIX 50 ML IV ONE ×2 (03:45→16:00)
[2016-10-20] MEDS ORDERED: BUPIVACAINE/EPINEPHRINE 0.25% PF 10 ML VIAL ONE (09:30)
[2016-10-20] MEDS ORDERED: ONDANSETRON HCL 4 MG/2 ML VIAL ONE (10:06)
--- NOTE | 2016-10-20 10:25 | EKG ---
Date Performed: 10/20/2016 Time Performed: 01:11:33 PTAGE: 76 years EKG: Sinus rhythm NORMAL ECG NO PREVIOUS TRACING DOCTOR: Taqueria Valdivia Interpretating Date/Time 10/20/2016 10:20:32
[2016-10-20] MEDS ORDERED: SODIUM CHLORIDE 0.9% FLUSH 10 ML FLUSH IV FLUSH PRN (11:15)
[2016-10-20] MEDS ORDERED: PANTOPRAZOLE SODIUM 40 MG VIAL IVP SCH (11:15)
[2016-10-20] MEDS ORDERED: ENALAPRILAT 1.25 MG/ML VIAL IV PRN (11:15)
[2016-10-20] MEDS ORDERED: ONDANSETRON HCL 4 MG/2 ML VIAL IV PUSH ONE (12:00)
[2016-10-20] MEDS ORDERED: KETOROLAC TROMETHAMINE 30 MG/ML (IVP) VIAL IVP PRN (12:00)
[2016-10-20] MEDS ORDERED: ONDANSETRON HCL 4 MG/2 ML VIAL IV PUSH PRN (12:00)
[2016-10-20] MEDS ORDERED: NEOSTIGMINE 3 MG/3 ML SYR IV ONE (12:00)
[2016-10-20] MEDS: PANTOPRAZOLE SODIUM 40 MG VIAL IVP SCH (12:00)
[2016-10-20] MEDS ORDERED: PROPOFOL 200 MG/20 ML AMP IV ONE (12:00)
[2016-10-20] MEDS ORDERED: LACTATED RINGER'S 1000 ML INJ 1,000 ML ONE (14:11)
[2016-10-20] MEDS ORDERED: ceFAZolin 2 GM PREMIX 50 ML ONE (14:15)
[2016-10-20] MEDS ORDERED: metroNIDAZOLE 500 MG INJ 100 ML IV ONE (14:15)
[2016-10-20] MEDS ORDERED: FAMOTIDINE 20 MG/2 ML VIAL ONE (14:26)
[2016-10-20] MEDS ORDERED: DEXAMETHASONE SOD PHOS 4 MG/ML VIAL ONE (14:26)
[2016-10-20] MEDS ORDERED: MIDAZOLAM HCL 2 MG/2 ML VIAL ONE (14:26)
--- NOTE | 2016-10-20 16:42 | HHI.PR ---
Immediate Post Op Note Procedure Date: October 20, 2016 Pre Op Diagnosis: (1) Cholecystitis, acute with cholelithiasis Post Op Diagnosis: (1) Cholecystitis, acute with cholelithiasis Surgeon: Lj Omalley Patient Financial Coordinator(s): staff Procedure: Laparoscopic Cholecystectomy Findings: acute cholecystitis and cholelithiasis Complications: none Specimen(s) removed: GB Estimated blood loss: 50ml Anesthesia: General Drains: None IVF Patient to: PACU Patient Condition: Good Lj Omalley MD October 20, 2016 16:41
[2016-10-20] MEDS ORDERED: DO NOT ADM ANY ANTICOAGULANT DRUGS PRN (16:51)
[2016-10-20] MEDS ORDERED: *morphine SULFATE 8 MG/ML PERIprocedure ONLY ONE (16:57)
[2016-10-20] MEDS ORDERED: fentaNYL CITRATE 250 MCG/5 ML AMP ONE (16:58)
[2016-10-20] MEDS: SODIUM CHLOR 0.9% 1000 ML INJ 1,000 ML IV SCH ×2 (17:16→21:07)
[2016-10-20] MEDS: PIPERACIL-TAZO 3.375 GM PREMIX 50 ML IV SCH (21:06)
[2016-10-20] MEDS: PHENYTOIN SODIUM 100 MG CAP PO SCH (21:06)
[2016-10-20] MEDS: ACETAMINOPHEN/HYDROcodone 325 MG/5 MG TAB PO PRN (21:06)
[2016-10-21] MEDS: ACETAMINOPHEN/HYDROcodone 325 MG/5 MG TAB PO PRN ×4 (03:08→20:26)
[2016-10-21] MEDS: PIPERACIL-TAZO 3.375 GM PREMIX 50 ML IV SCH ×4 (03:08→20:26)
[2016-10-21 04:32] VITALS: BP 120/56; PULSE 100; RESP 17; TEMP 98; O2SAT 95
[2016-10-21] MEDS: MORPHINE SULFATE 4 MG/ML INJ IV PRN ×2 (06:42→15:28)
[2016-10-21] MEDS: SODIUM CHLOR 0.9% 1000 ML INJ 1,000 ML IV SCH ×2 (06:44→16:29)
[2016-10-21 08:00] VITALS: BP 112/57; PULSE 102; RESP 20; TEMP 97.9; O2SAT 97
[2016-10-21] MEDS: PHENYTOIN SODIUM 100 MG CAP PO SCH ×2 (08:42→20:26)
--- NOTE | 2016-10-21 08:42 | MP ---
cc: COLIN DHALIWAL DATE OF SURGERY 10/20/2016 PREOPERATIVE DIAGNOSIS Acute cholecystitis and cholelithiasis. POSTOPERATIVE DIAGNOSIS Acute cholecystitis and cholelithiasis. PROCEDURE Laparoscopic cholecystectomy. ATTENDING SURGEON MD Lyssa MANAGER BANQUET Staff. ANESTHESIA General. BLOOD LOSS 50 cc. COMPLICATIONS None. FINDINGS Very acute cholecystitis with the entire gallbladder packed with large pigmented gallstones. INDICATIONS FOR PROCEDURE The patient is a 76-year-old female who experienced choledocholithiasis requiring gastroenterology consult and ERCP and stent placement. The patient was discharged home for close follow up with surgery for preventative cholecystectomy due to previous history of choledocholithiasis. However, the patient developed severe onset of epigastric pain prompting return to the emergency department. Evaluation did show a CT scan with gallstones, however, no definitive changes. General Surgery was consulted and, after discussion with the patient, clinically the patient had acute cholecystitis on exam and recommended the patient just proceed in the next 24 hours to cholecystectomy. The risks, benefits and alternatives of laparoscopic cholecystectomy were discussed with the patient prior to the procedure. The patient agreed to undergo the procedure. PROCEDURE The patient was taken to the operating room, placed in supine position, placed under general endotracheal anesthesia. The patient's abdomen was prepped and draped in sterile fashion. Time-out was performed. We entered the abdomen through a Horner type technique just above the umbilicus. We then inflated the abdomen and surveyed the abdomen with a 5-mm, 30-degree camera. There was no evidence of any complication from our entry. We then placed three 5-mm ports. These were in the subxiphoid position and two in the right upper quadrant under direct visualization of the laparoscope. We used local anesthetic at all port sites. We then were able to start dissection. We took down dense adhesions that were mostly acute from the omentum from the gallbladder, mostly bluntly. We did have some small areas of bleeding from the omentum. We did place an Endoloop as well as cautery on this on this omentum eventually to gain good hemostasis. Once we had completely taken off the omentum from the gallbladder, we grasped it and retracted it upward. We did have to decompress the gallbladder through a cholecystotomy and the superior part of the dome and basically hydrops and clear fluid was expressed. However, the gallbladder was still quite distended, full of stones. Then continued difficult dissection to include triangle of Calot using the hook electrocautery as well as [place] dissector. A critical view of safety was obtained. We then able to doubly clip the cystic duct proximal and a single clip on the cystic duct distally and singly clipped the cystic artery proximal and distal, divided these structures with endoshears. We placed an Endoloop around the cystic duct stump and secured this into place. We then removed the remaining small portion of the gallbladder from the dome of the liver with the hook electrocautery. We removed the gallbladder from the abdomen with the EndoCatch bag through the Horner periumbilical port. We then were able to again suctioned out the abdomen until all succinate was clear. We placed Marshal at the gallbladder fossa and vivi hepatis and overlying tissue due to significant inflammation and propensity for oozing. We then removed all ports under visualization of the laparoscope and expressed pneumoperitoneum. We closed the fascia of the Horner entry with a running 0 Vicryl suture. We closed the skin with 4-0 Monocryl and Dermabond. The patient this point in time was discontinued from anesthesia and taken to the PACU in stable condition. The patient tolerated the procedure well. No apparent complications. All counts were correct and I was present and scrubbed for the entire procedure. MD NIKOLE BourgeoisG/SSB /4:46 PM /8:18 AM
[2016-10-21] MEDS: PANTOPRAZOLE SODIUM 40 MG VIAL IVP SCH (11:54)
[2016-10-21 12:00] VITALS: BP 143/58; PULSE 93; RESP 20; TEMP 97.8; O2SAT 95
[2016-10-21] MEDS ORDERED: CEPH-460 PO (12:47)
[2016-10-21 16:00] VITALS: BP 119/55; PULSE 100; RESP 20; TEMP 98; O2SAT 93
--- NOTE | 2016-10-21 16:10 | HHI.PR ---
Subjective Subjective Notes Patient examined about 1130---up to chair; pain controlled; walked hallways Objective Vitals/I&O Vital Signs Date Time Temp Pulse Resp B/P Pulse Ox O2 Delivery O2 Flow Rate FiO2 10/21/16 12:00 97.8 93 20 143/58 95 10/20/16 19:50 21 10/20/16 17:30 Nasal Cannula 2 Cardiovascular: Regular Lungs: Clear Abdomen: Other (abdomen soft; umbilicus site with bruising and mildly red; other two smaller lap sites with mild bruising ) Extremities: No edema A/P Assessment and Plan 76 year old female POD1 lap rene -Regular diet -Pain control -Continue Zosyn; Keflex on the chart -OOB and mobilize -Patient would like to stay overnight; will plan to DC tomorrow if pain controlled Attending Statement The exam, history, and the medical decision-making described in the above note were completed with the assistance of the mid-level provider. I reviewed and agree with the findings presented. I attest that I had a [id number] encounter with the patient on the same day, and personally performed and documented my assessment and findings in the medical record. Abdominal exam postop tenderness on exam, continue pain meds, IVF until eating well Debbie Mueller October 21, 2016 16:10 Lj Omalley MD November 02, 2016 16:58
[2016-10-21 20:00] VITALS: BP 121/59; PULSE 100; RESP 16; TEMP 98.9; O2SAT 94
[2016-10-21 23:51] VITALS: BP 122/60; PULSE 101; RESP 16; TEMP 97.8; O2SAT 94
[2016-10-22] MEDS: SODIUM CHLOR 0.9% 1000 ML INJ 1,000 ML IV SCH (03:07)
[2016-10-22] MEDS: PIPERACIL-TAZO 3.375 GM PREMIX 50 ML IV SCH ×2 (03:46→07:25)
[2016-10-22] MEDS: ACETAMINOPHEN/HYDROcodone 325 MG/5 MG TAB PO PRN (07:26)
[2016-10-22] MEDS: PHENYTOIN SODIUM 100 MG CAP PO SCH (07:26)
[2016-10-22 08:00] VITALS: BP 125/72; PULSE 163; RESP 16; TEMP 97.7; O2SAT 93
[2016-10-22 09:13] VITALS: PULSE 100
--- NOTE | 2016-10-27 13:01 | MH ---
cc: COLIN DHALIWAL DATE OF ADMISSION 10/20/2016 CHIEF COMPLAINT Acute cholecystitis PRESENT ILLNESS The patient is a 76-year-old female known to me with a history of common bile duct stones and possible cholecystitis. The patient was admitted in September 2016 for choledocholithiasis and underwent ERCP and sphincterotomy. This was successful and the patient had no biliary obstruction and had resolution of her pain and symptoms. The patient did decline immediate surgery in the hospital and did elect to follow up as an outpatient for elective cholecystectomy. Again, the patient was tolerating a diet and afebrile and had no signs of complications from the ERCP. The patient unfortunately did develop recurrent right upper quadrant pain similar to her previous episode and presented to the emergency department on 10/20/2016. The patient states that her pain was approximately two days of increasing fluid in the right quadrant that radiates to her back. This was not relieved with Percocet. She has not been able to tolerate fluids or oral intake. I therefore went to the emergency room department, and upon evaluation in the emergency department, the patient was found to have a CT scan that showed multiple gallstones with no definitive inflammatory changes. The patient did have significant tenderness in the right upper quadrant. The patient underwent admission for likely cholecystitis. General surgery was consulted. REVIEW OF SYSTEMS A 12-point you systems was discussed with the patient and is negative except for the pertinent positives mentioned above in the history of present illness. PAST MEDICAL HISTORY 1. Arthritis 2. Headaches PAST SURGICAL HISTORY 1. ERCP 2. Beast biopsies 3. Seizure disorder ALLERGIES NO KNOWN DRUG ALLERGIES. MEDICATIONS 1. Percocet 2. Phenytoin SOCIAL HISTORY The patient denies alcohol, tobacco or illicit drug use. FAMILY HISTORY Noncontributory PHYSICAL EXAM VITAL SIGNS: Temperature 98 degrees, pulse 79, blood pressure 136/69, O2 saturation 100%. GENERAL: The patient is a well-developed, well-nourished female in no acute distress. HEAD, EYES, EARS, NOSE, AND THROAT: Her head is normocephalic, atraumatic. Pupils round and reactive to accommodation and light. Sclerae is anicteric. Mucous membranes are moist. NECK: Supple. No JVD. LUNGS: Clear to auscultation bilaterally. Nonlabored breathing pattern. HEART: Regular rhythm. PMI is nondisplaced. ABDOMEN: Soft, tender to palpation in the right upper quadrant a positive Goel's sign without diffuse peritonitis or rebound tenderness. BACK: No CVA tenderness. EXTREMITIES: No clubbing, cyanosis or edema. NEUROLOGIC: The patient is awake, alert and/or x3. Nonfocal peripheral exam. Cranial nerves II-XII are grossly intact. ASSESSMENT AND PLAN The patient is a 76-year-old female known to me with a history of choledocholithiasis now with recurrent right upper quadrant pain and cholelithiasis and likely acute cholecystitis. The patient will be admitted, placed on IV antibiotics and made n.p.o. for treatment of acute cholecystitis. I did discuss with the patient proceeding with cholecystectomy during this hospitalization was I do recommend. She agrees to this management. Discussed again, the risks, benefits and alternatives to laparoscopic cholecystectomy with the patient and her . All questions were answered to their satisfaction. We will proceed with surgery today based on operating room availability. MD IVON Bourgeois/REI /12:39 PM /12:51 PM
== END 2016-10-22 09:59 | disposition home or self-care (01) ==
LOC: NEPE 00:08 → NEDA 04:15 → INTOOBSV 04:15 → HSDI 11:30 → N07A 17:44
PROVIDERS: ADMIT Surgery; ATTEND Surgery
DX: K80.62 Calculus of gallbladder and bile duct with acute cholecystitis without obstruction (principal); K66.0 Peritoneal adhesions (postprocedural) (postinfection); K44.9 Diaphragmatic hernia without obstruction or gangrene; G40.909 Epilepsy, unspecified, not intractable, without status epilepticus; M81.0 Age-related osteoporosis without current pathological fracture
CPT/HCPCS: 00790; 47562; 74177; 80053; 81001; 83605; 83690; 83735; 85025; 85610; 85730; 88304; 93005; 96361; 96365; 96375; 96376; 99285; C9113; G0378; J1100; J1170; J1885; J2250; J2270; J2405; J2543; J2710; J3010; J7030; J7120; Q9967; J0690

== ENCOUNTER 2016-10-28 19:01 | Emergency (ER) | payer OTHER ==
[~2016-10-28] VITALS: Ht 152.4 cm; Wt 59.0 kg
[~2016-10-28 19:01] MED LIST changes: +CEPH-460 PO; -IBUP-232 PO
[2016-10-28 19:04] VITALS: BP 140/74; PULSE 121; RESP 16; TEMP 98.2; O2SAT 96
[2016-10-28 19:24] VITALS: BP 140/74; PULSE 108; RESP 18; TEMP 98.2; O2SAT 97
[2016-10-28] MEDS ORDERED: ONDANSETRON ODT 4 MG TAB PO ONE (19:30)
[2016-10-28] MEDS ORDERED: MORPHINE SULFATE 4 MG/ML INJ IM ONE (19:30)
[2016-10-28] MEDS ORDERED: CYCL1TAB29 PO (19:31)
--- NOTE | 2016-10-28 19:32 | PD ---
HPI Chief Complaint: Pain: Acute or Chronic Time Seen by Provider: 19:15 Travel History International Travel<30 days: No Contact w/Intl Traveler<30days: No Traveled to known affect area: No History of Present Illness HPI 76-year-old female complains of neck pain. Patient states that she started having left-sided neck pain a week ago. Patient was seen by personal physician and given prescription for Flexeril. Patient has been taking Flexeril as directed. Patient states the pain is worse today. Patient was seen by personal physician again today and referred to ED for evaluation. Patient denies any headache. Patient denies any visual change. Patient denies any chest pain or shortness of breath. Patient denies abdominal pain. Patient denies any focal weakness or numbness of extremity. Patient denies any recent injury. Patient status post laparoscopic cholecystectomy October 20, 2016. Patient denies any abdominal pain or nausea vomiting or diarrhea. Patient denies any fever chills. 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) Cancer: No Cardiovascular Problems: No Diminished Hearing: No Endocrine: No Gastrointestinal Disorders: Yes Genitourinary: No Headaches: Yes Immune Disorder: No Musculoskeletal: Yes (OSTEOPOROSIS) Neurologic: Yes Psychiatric: No Respiratory: No Seizures: Yes ?: Not : 1 Para: 1 Past Surgical History Abdominal Surgery: Yes (GALLBLADDER- STENT PLACED IN BILE DUCT) Gynecologic Surgery: Yes (BREAST BIOPSY) Other Surgery: Yes Social History Alcohol Use: No Tobacco Use: No Substance Use: No Allergies-Medications (Allergen,Severity, Reaction): Coded Allergies: No Known Allergies (Unverified , 10/28/16) Reported Meds & Prescriptions Reported Meds & Active Scripts Active Percocet (Oxycodone-Acetaminophen) 5-325 mg Tab 1 Tab PO Q6H PRN Prednisone 20 Mg Tab 20 Mg PO BID Reported Flexeril (Cyclobenzaprine HCl) 10 Mg Tab 10 Mg PO TID Phenytoin Extended 100 Mg Cap 100 Mg PO HS Phenytoin Extended 200 Mg Cap 200 Mg PO DAILY Review of Systems General / Constitutional: No: Fever Eyes: No: Visual changes HENT: Positive: Neck Pain, No: Headaches Cardiovascular: No: Chest Pain or Discomfort Respiratory: No: Shortness of Breath Gastrointestinal: No: Abdominal Pain Genitourinary: No: Dysuria Musculoskeletal: No: Pain Skin: No Rash Neurologic: No: Weakness Psychiatric: No: Depression Endocrine: No: Polydipsia Hematologic/Lymphatic: No: Easy Bruising Physical Exam Narrative GENERAL: Well-nourished, well-developed patient. SKIN: Focused skin assessment warm/dry. HEAD: Normocephalic. EYES: No scleral icterus. No injection or drainage. NECK: Supple, trachea midline. No JVD or lymphadenopathy. Patient has moderate tenderness on palpation left upper neck area to the base of the skull area. No midline tenderness. No deformity noted. No meningismus. No redness no swelling no rash noted. CARDIOVASCULAR: Regular rate and rhythm without murmurs, gallops, or rubs. RESPIRATORY: Breath sounds equal bilaterally. No accessory muscle use. GASTROINTESTINAL: Abdomen soft, non-tender, nondistended. MUSCULOSKELETAL: No cyanosis, or edema. BACK: Nontender without obvious deformity. No CVA tenderness. Neurologic exam normal. Data Data Last Documented VS Vital Signs Date Time Temp Pulse Resp B/P Pulse Ox O2 Delivery O2 Flow Rate FiO2 10/28/16 19:24 108 18 10/28/16 19:24 98.2 140/74 97 Room Air Orders Morphine Inj (Morphine Inj) (10/28/16 19:30) Ondansetron Odt (Zofran Odt) (10/28/16 19:30) Ct Brain W/O Iv Contrast(Rout) (10/28/16 19:30) Ct Cerv Spine W/O Contrast (10/28/16 19:30) Ketorolac Inj (Toradol Inj) (10/28/16 20:45) Dexamethasone Inj (Decadron Inj) (10/28/16 21:30) [facility] Medical Decision Making Medical Screen Exam Complete: Yes Emergency Medical Condition: Yes Interpretation(s) Last Impressions Head CT 10/28/161929 Signed Impressions: Service Date/Time: October 20:04 - CONCLUSION: Negative noncontrast head CT. Gabe Johnson MD Cervical Spine CT 10/28/161929 Signed Impressions: Service Date/Time: October 20:04 - CONCLUSION: No acute fracture or subluxation of the cervical spine. Degenerative changes at C4/C5 and C5/C6 with left foraminal stenosis at both levels. Gabe Johnson MD Differential Diagnosis Differential diagnosis including muscular spasm, fracture, disc disease, intracranial pathology. Narrative Course 76-year-old female with left-sided neck pain and pain to the base of the skull on the left side. Morphine 2 mg IM. Zofran 4 mg ODT. Toradol 30 mg IM. Decadron 8 mg IM. Diagnosis Primary Impression: Neck arthropathy Patient Instructions: General Instructions Additional Instructions: Take medications as directed for pain. Follow-up with personal physician. Return if worse. Take stool softener with pain medication. Med/Other Pt SpecificInfo: Prescription(s) given Scripts Oxycodone-Acetaminophen (Percocet)5-325 mg Tab1 Tab PO Q6H PRN (PAIN) #30 TAB Ref 0 Prov:Aaron Aly MD 10/28/16 Prednisone 20 Mg Tab20 Mg PO BID #10 TAB Prov:Aaron Aly MD 10/28/16 Disposition: 01 DISCHARGE HOME Condition: Stable Aaron Aly MD October 28, 2016 19:32
[2016-10-28] MEDS ORDERED: KETOROLAC TROMETHAMINE 60 MG/2 ML (IM) VIAL IM ONE (20:45)
--- NOTE | 2016-10-28 20:46 | RADHPO ---
EXAM DATE/TIME: 10/28/2016 20:04 [facility] COMPARISON: No previous studies available for comparison. INDICATIONS : Cephalgia. RADIATION DOSE: 60.55 CTDIvol (mGy) MEDICAL HISTORY : Seizures. SURGICAL HISTORY : None. ENCOUNTER: Initial ACUITY: 1 day PAIN SCALE: 8/10 LOCATION: Left cranial TECHNIQUE: Multiple contiguous axial images were obtained of the head. Using automated exposure control and adj ustment of the mA and/or kV according to patient size, radiation dose was kept as low as reasonably a chievable to obtain optimal diagnostic quality images. FINDINGS: CEREBRUM: The ventricles are normal for age. No evidence of midline shift, mass lesion, hemorrhage or acute in farction. No extra-axial fluid collections are seen. POSTERIOR FOSSA: The cerebellum and brainstem are intact. The 4th ventricle is midline. The cerebellopontine angle i s unremarkable. EXTRACRANIAL: The visualized portion of the orbits is intact. SKULL: The calvaria is intact. No evidence of skull fracture. CONCLUSION: Negative noncontrast head CT. Gabe Johnson MD on October 28, 2016 at 20:44 Board Certified Radiologist. This report was verified electronically.
--- NOTE | 2016-10-28 21:09 | RADHPO ---
EXAM DATE/TIME: 10/28/2016 20:04 [facility] COMPARISON: No previous studies available for comparison. INDICATIONS : Left neck pain. RADIATION DOSE: 26.45 CTDIvol (mGy) MEDICAL HISTORY : Seizures. SURGICAL HISTORY : None. ENCOUNTER: Initial ACUITY: 1 day PAIN SCALE: 8/10 LOCATION: Left neck TECHNIQUE: Volumetric scanning of the cervical spine was performed. Multiplanar reconstructions in the sagittal, coronal and oblique axial planes were performed. Using automated exposure control and adjustment o f the mA and/or kV according to patient size, radiation dose was kept as low as reasonably achievable to obtain optimal diagnostic quality images. FINDINGS: Cervical spine alignment is normal. Mild loss of height of C5, appears chronic/degenerative. There is moderate disc space narrowing and uncovertebral facet osteoarthritis at C4/C5 and C5/C6 with mild le ft foraminal stenosis at both levels. No cortical break or trabecular disruption. Juxtavertebral soft tissues are within normal limits. CONCLUSION: No acute fracture or subluxation of the cervical spine. Degenerative changes at C4/C5 and C5/C6 with left foraminal stenosis at both levels. Gabe Johnson MD on October 28, 2016 at 21:03 Board Certified Radiologist. This report was verified electronically.
[2016-10-28] MEDS ORDERED: PRED20 PO (21:27)
[2016-10-28] MEDS ORDERED: PERC5TAB12 PO (21:27)
[2016-10-28] MEDS ORDERED: DEXAMETHASONE SOD PHOS 4 MG/ML VIAL IM ONE (21:30)
[2016-10-28 21:32] VITALS: BP 138/76; PULSE 92; RESP 18; O2SAT 97
== END 2016-10-28 21:50 | disposition home or self-care (01) ==
LOC: PHED 19:01
DX: M12.9 Arthropathy, unspecified (principal); M48.02 Spinal stenosis, cervical region; M81.0 Age-related osteoporosis without current pathological fracture; R56.9 Unspecified convulsions; Z79.899 Other long term (current) drug therapy
CPT/HCPCS: 70450; 72125; 96372; 99285; J1100; J1885; J2270